=== PATIENT | male | born 1930 | race Two or more races ===

== ENCOUNTER → 2016-10-06 | Outpatient (CLI) | payer MEDICARE, MEDICAID ==
[~2016-10-06] MED LIST: ALIGN4 M1 PO; LINZESS145 MCG PO; MIRTAZAPINE15 MG ORAL; OMEPRAZOLE40 M1 ORAL; RANITIDINE HCL150 MG ORAL; [UNRECOGNIZED DRUG - REMARK] PO
--- NOTE | 2016-10-06 10:03 | GI Progress Note ---
Assessment/Plan Problems: (1) Abdominal pain ICD Codes: R10.9 - Unspecified abdominal pain SNOMED: 97655974 (2) Helicobacter pylori (H. pylori) ICD Codes: A04.8 - Other specified bacterial intestinal infections SNOMED: 6788326 (3) Weight loss ICD Codes: R63.4 - Abnormal weight loss SNOMED: 74841773 Status: stable Status Narrative Seen with Dr. Baxter. Assessment/Plan HP positive >> tx given, RTC x 3 months for RT Abdominal pain >> HIDA scan with CCK wt loss >> f/u possible EUS next visit The patient was seen and examined at bedside and all new and available data was reviewed in the patients chart. I agree with the above findings, impression and plan. (Patient seen earlier today. Signature stamp does not reflect patient encounter time.). -Jeb Baxter MD Subjective Subjective abdominal pain wt loss Objective General Appearance: no apparent distress, alert Cardiovascular: normal rate Respiratory/Chest: lungs clear, normal breath sounds Abdominal Exam: normal bowel sounds, non tender, soft Genitourinary/Rectal: normal rectal exam Extremities: normal range of motion Objective Date of Service: 09/23/16 Endoscopy Procedure Note Indication for Procedure: abd pain, wt lis Procedures Performed: EGD, colonoscopy Operative Findings/Diagnosis: 3 polyps JEB BAXTER - Sep 23, 2016 11:10 Scarlett Jean-Baptiste N.PAna Oct 06, 2016 10:03 JEB BAXTER Oct 07, 2016 12:16
== END | disposition home or self-care (01) ==
LOC: PAN 09:27
DX: R10.9 Unspecified abdominal pain (principal); A04.8 Other specified bacterial intestinal infections; R63.4 Abnormal weight loss; K63.5 Polyp of colon
CPT/HCPCS: 99211

== ENCOUNTER → 2016-10-19 | Day surgery (SDC) | payer MEDICARE, MEDICAID ==
[~2016-10-19] VITALS: Ht 160 cm; Wt 61.2 kg
[2016-10-19] VITALS (9 sets, daily range): BP systolic 106–118; BP diastolic 65–76
[~2016-10-19] MED LIST changes: +DiphenhydrAMINE 50mg/ml Inj IVP PRN; +LR 1000ml 1,000 ML IVLG SCH; +LR 1000ml ONE; +Labetalol 5mg/ml 20ml vial IV PRN; +Lidocaine 1% MPF 10mg/ml 5ml ONE; +Propofol 10mg/ml 20ml IV ONE
--- NOTE | 2016-10-19 08:54 | Anethesia Preoperative Eval ---
Anesthesia Pre-op PMH/ROS General Date of Evaluation: Oct 19, 2016 Anesthesiologist: Blas ASA Score: ASA 2 Mallampati Score Class I : Soft palate, uvula, fauces, pillars visible Class II: Soft palate, uvula, fauces visible Class III: Soft palate, base of uvula visible Class IV: Only hard plate visible Mallampati Classification: Class II Surgeon: Vee Diagnosis: ABdominal pain Surgical Procedure: EUS Anesthesia History: none Family History: no anesthesia problems Allergies: Coded Allergies: No Known Allergies (Unverified , 06/26/16) Medications: see eMAR Past Medical History Cardiovascular: Denies: CAD, HTN, OR, arrhythmia, other, valve dz Pulmonary: Denies: COPD, RICHAR, asthma, other Gastrointestinal/Genitourinary: Reports: GERD - gastritis, other - hiatal hernia, Denies: CRI, ESRD Neurologic/Psychiatric: Denies: CVA, TIA, dementia, depression/anxiety, other Endocrine: Denies: DM, hypothyroidism, other, steroids HEENT: Denies: [place] (L), [place] (R), cataract (L), cataract (R), glaucoma, other Hematology/Immune: Reports: anemia - chronic, Denies: DVT, bleeding disorder, other Musculoskeletal/Integumentary: Reports: OA, Denies: DDD, DJD, RA, edema, other PSxH Narrative: Right THR Anesthesia Pre-op Phys. Exam Physician Exam Last Vital Signs Date Time Temp Pulse Resp B/P Pulse Ox O2 Delivery O2 Flow Rate FiO2 10/19/16 07:37 97.8 65 20 110/65 97 Room Air Constitutional: NAD Cardiovascular: RRR Respiratory: CTA Airway Exam Mallampati Score: Class II MO: full Anesthesia Pre-op A/P Labs see chart Studies Pre-op Studies: EKG - sr Risk Assessment & Plan Assessment: ASA II Plan: MAC Status Change Before Surgery: No Pre-Antibiotics Drug: N/A KIM FULLER M.D. Oct 19, 2016 08:54
--- NOTE | 2016-10-19 08:55 | 48 Hour Post Anesthesia Eval ---
Post Anesthesia Evaluation Procedure: EUS Date of Evaluation: Oct 19, 2016 Blood Pressure Systolic: 131 0: 81 Pulse Rate: 74 Respiratory Rate: 16 O2 Sat by Pulse Oximetry: 98 Nausea: No Vomiting: No Pain Intensity: 0 Hydration Status: adequate Cardiopulmonary Status: at baseline Mental Status/LOC: patient returned to baseline Post-Anesthesia Complications: 0 Follow-up care needed: ready to discharge KIM FULLER M.D. Oct 19, 2016 08:55
--- NOTE | 2016-10-19 08:55 | Immediate Post-Op Evaluation ---
Immediate Post-Op Evalulation Immediate Post-Op Evalulation Procedure: EUS Date of Evaluation: Oct 19, 2016 Time of Evaluation: 09:56 IV Fluids: 400 Blood Products: 0 Estimated Blood Loss: 0 Urinary Output: 0 Blood Pressure Systolic: 106 Blood Pressure Diastolic: 70 Pulse Rate: 81 Respiratory Rate: 17 O2 Sat by Pulse Oximetry: 97 Temperature (Fahrenheit): 97.6 Pain Score (1-10): 0 Nausea: No Vomiting: No Complications 0 Patient Status: awake, reacts, patent, none Hydration Status: adequate Drug: N/A KIM FULLER M.D. Oct 19, 2016 08:55
--- NOTE | 2016-10-19 09:07 | Pre-Procedure Note/Attestation ---
Pre-Procedure Note/Attestation Complete Prior to Procedure Planned Procedure: not applicable Procedure Narrative: eus Indications for Procedure Pre-Operative Diagnosis: wt loss, abd pain Attestation I attest that I discussed the nature of the procedure; its benefits; risks and complications; and alternatives (and the risks and benefits of such alternatives ), prior to the procedure, with the patient (or the patient's legal professional healthcare representative). I attest that, if there was a reasonable possibility of needing a blood transfusion, the patient (or the patient's legal professional healthcare representative) was given the [facility] standardized written summary, pursuant to the [place] Blood Safety Act ([place] Health and Safety Code # 1645, as amended). I attest that I re-evaluated the patient just prior to the surgery and that there has been no change in the patient's H&P, except as documented below: KELSEA VELAZQUEZ Oct 19, 2016 09:07
--- NOTE | 2016-10-19 09:09 | Short Stay Surgery H&P ---
History of Present Illness History of Present Illness Chief Complaint abd pain HPI Fawn Feliciano is a 85 year old male who was admitted on for Abdominal Pain Patient History Allergies: Coded Allergies: No Known Allergies (Unverified , 06/26/16) PAST MEDICAL HISTORY: (1) Constipation (2) Gastritis (3) GERD (gastroesophageal reflux disease) (4) BPH (benign prostatic hyperplasia) (5) Weight loss (6) Abdominal pain (7) Helicobacter pylori (H. pylori) Past Surgeries: Social History: Medication History Scheduled Bifidobacterium Infantis (Align), 4 MG PO DAILY, (Reported) Linaclotide (Linzess), 145 MCG PO DAILY, (Reported) Mirtazapine* (Remeron*), 3.5 MG ORAL BEDTIME, (Reported) Omeprazole (Omeprazole), 40 MG ORAL DAILY, (Reported) Ranitidine Hcl* (Zantac*), 75 MG ORAL TID, (Reported) [Postate Pill], PO DA, (Reported) Review of Systems Cardiovascular: Reports: no symptoms Respiratory: Reports: no symptoms Skeletal: Reports: no symptoms Gastrointestinal: Reports: gastro esophageal reflux disease Genitourinary: Reports: no symptoms Neurologic: Reports: no symptoms Endocrine: Reports: no symptoms Hematologic: Reports: no symptoms Physical Exam Vital Signs Last Vital Signs Date Time Temp Pulse Resp B/P Pulse Ox O2 Delivery O2 Flow Rate FiO2 10/19/16 07:37 97.8 65 20 110/65 97 Room Air Skin: normal HENT: normal Heart: normal Lungs: normal Abdomen: normal Extremities: normal Plan Plan of Care eus Final Diagnosis: Attestation Are the patient's medical conditions optimized for surgery? Attestation Response: yes KELSEA VELAZQUEZ Oct 19, 2016 09:09
--- NOTE | 2016-10-19 10:08 | Endoscopy Procedure Note ---
Endoscopy Procedure Note Indication for Procedure: wt loss abd pain Procedures Performed: other - EUS Operative Findings/Diagnosis: panc mass Specimen: none Pt Tolerated Procedure Well: Yes Estimated Blood Loss: none Anesthesiologist: juan Anesthesia: MAC Implant(s) used?: No 50 yrs or older w/o bx or poly: Not Applicable 10yrs. F/U not recommended: Not Applicable KELSEA VELAZQUEZ Oct 19, 2016 10:08
[2016-10-19 10:44] LABS: AMYLASE 61 U/L (10-110); ANION GAP 13 (5-15); CALCIUM 8.7 mg/dL (8.6-10.2); CARBON DIOXIDE 27 mEQ/L (20-30); CHLORIDE 97 mEQ/L (98-107); CREATININE 0.8 mg/dL (0.7-1.2); HEMOLYSIS 11; LIPASE 17 U/L (< 60); POTASSIUM 3.9 mEQ/L (3.4-4.9); SODIUM 137 mEQ/L (135-145)
--- NOTE | 2016-10-19 13:24 | Diagnostic Imaging Report ---
Indications: Abdominal pain, weight loss, pancreatic mass on endoscopic ultrasound Technique: Continuous helical CT imaging of the abdomen and pelvis was performed with automatic exposure control following administration of oral and intravenous nonionic iodine contrast, on a Siemens sensation [address] scanner. Arterial and venous phase imaging performed. Axial, coronal, and sagittal images were reconstructed at 5 mm slice thickness. CTDI volume(s): 8, 65, 12, 15 mGy Total DLP: 1260 mGy-cm Findings: Comparison: None Solid, multilobulated, heterogeneously hypoattenuating mass occupies a portion of the pancreatic head and adjacent body.. It measures approximately 3.7 x 3 x 2.7 cm. It abuts and focally narrows the splenic-mesenteric venous confluence and peripheral aspect of the main portal vein. All 3 appear patent and well-opacified. No also abuts and partially encases the thecal aspect of the celiac axis, proximal aspects of the splenic and common hepatic arteries. Superior mesenteric artery does not appear contacted by the mass. Density process a portion of adjacent pancreatic head appear uninvolved. Bile ducts and gallbladder are nondilated. Pancreatic body and tail distal to the mass are diffusely atrophic with ductal dilation and several small nodular parenchymal calcifications. Several small lymph nodes reside adjacent to the mass, up to 1 cm diameter. Liver is unremarkable without focal abnormality. Small hiatal hernia is present. Focal cortical thinning upper pole left kidney. Subcentimeter circumscribed low-attenuation focus upper pole cortex right kidney. Scattered arterial mural calcifications without obvious flow-limiting stenosis or occlusion. Early distended and fecal filled. Colonic hepatic flexure resides anterior to the liver. Several diverticula are present in the opacified sigmoid colon, which is poorly distended. Urinary bladder distended with 3 cm diverticulum emanating from its right lateral margin. Fat-containing right inguinal hernia. Fixation hardware proximal aspect right femur. Remainder visualized abdominopelvic anatomy demonstrates no other obvious significant abnormality. Irregular increased interstitial markings, more discrete linear densities and patchy groundglass opacities and dependent portions of both lung bases. Multilevel disc space narrowing with marginal osteophyte formation, vacuum phenomenon and lumbar, lower thoracic spine. IMPRESSION: 3.7 cm solid mass in the head/body junction of the pancreas highly suspicious for primary pancreatic adenocarcinoma Atrophy pancreas distal to the mass No associated bile duct obstruction Abutment and narrowing of splenic-mesenteric venous confluence and peripheral aspect of main portal vein Abutment/partial encasement of distal celiac axis and branches Multifocal mild peripancreatic adenopathy No evidence of hepatic or other distant metastases Right renal cortical low-attenuation focus too small to accurately characterize, most likely cyst Left renal cortical scarring versus junctional parenchymal defect Suggestion of constipation Chilaiditi syndrome Small hiatal hernia Arteriosclerosis Urinary bladder distention with diverticulum. Outflow obstruction not excludable. Previous right femur ORIF Pulmonary bibasal parenchymal changes as described, may all be atelectatic in nature. Congestive and/or inflammatory disease not excludable Degenerative spondylosis
--- NOTE | 2016-10-19 21:17 | Procedure Note ---
DATE OF PROCEDURE: 10/19/2016 SURGEON: Jeb Baxter M.D. PROCEDURE: Endoscopic ultrasound. ANESTHESIOLOGIST: Dr. Galeano. INSTRUMENT: Olympus adult flexible EUS radial scope. INDICATION: Weight loss and abdominal pain. REASON FOR PROCEDURE: The procedure, risks, benefits, and possible consequences, including hemorrhage, aspiration, perforation and infection, and alternative treatments were explained to the patient/legal guardian by Dr. Jeb Baxter and the patient/legal guardian understood and accepted these risks. DESCRIPTION OF PROCEDURE: After informed consent was obtained and the patient was adequately sedated, the EUS scope was advanced from the mouth into the esophagus and then into the stomach and subsequently into the second portion of duodenum and pancreatic parenchyma was carefully examined through the gastroduodenal mucosa. The patient had a normal left adrenal gland. No obvious large celiac axis lymphadenopathy. The patient had dilated pancreatic duct in the body and tail of the pancreas roughly measured about 5 mm in the body of the pancreas. The patient also had evidence of atrophic pancreas especially in the tail. Then, the scope was advanced into the duodenal bulb and second portion of duodenum. The patient had a little difficult procedure given the duodenal bulb was very small as soon as we get into the duodenum we will move to the second portion of duodenum. There was evidence of about 3 cm hypoechoic lesion in the head /uncinate process of the pancreas since that this lesion involves the portal vein. There is a small peripancreatic lymph node about 6 mm. No obvious common bile duct dilatation. No obvious gallstones. The liver also look little bit atrophic. The patient tolerated the procedure without any complication. SUMMARY OF FINDINGS: 1. Dilated pancreatic duct about 5 mm in the body and tail of the pancreas. 2. Atrophic pancreatic tail and body. 3. A 3 cm hypoechoic lesion in the head/uncinate process of the pancreas with possible involvement of the portal vein and also the peripancreatic lymph node of 6 mm suspicious for malignancy. RECOMMENDATIONS: We are going to order a CT of the abdomen and pelvis with pancreatic protocol with IV and contrast to further evaluate this lesion in the head of the pancreas, to further evaluate staging if there is a malignancy and we will make further decision after the CT is done. We also going to order a CA-19-9. I want to thank, Dr. Benito for this kind referral. Jebabdelrahman Baxter M.D. DR: Kayden JOB#: [id number] CC: Jairo Benito M.D.
== END | disposition home or self-care (01) ==
LOC: GAS 07:12
DX: K86.89 Other specified diseases of pancreas (principal); R59.0 Localized enlarged lymph nodes; R63.4 Abnormal weight loss; N40.0 Benign prostatic hyperplasia without lower urinary tract symptoms; K21.9 Gastro-esophageal reflux disease without esophagitis; K44.9 Diaphragmatic hernia without obstruction or gangrene; Z87.19 Personal history of other diseases of the digestive system; D64.9 Anemia, unspecified; M19.90 Unspecified osteoarthritis, unspecified site
CPT/HCPCS: 36415; 43237; 74177; 80048; 82150; 83690; 86301; J2405; J2704; J7120; Q9967; 94003; 94150

== ENCOUNTER 2017-02-16 09:14 | Outpatient (CLI) | payer MEDICARE, MEDICAID ==
[~2017-02-16 09:14] MED LIST changes: -DiphenhydrAMINE 50mg/ml Inj IVP PRN; -LR 1000ml 1,000 ML IVLG SCH; -LR 1000ml ONE; -Labetalol 5mg/ml 20ml vial IV PRN; -Lidocaine 1% MPF 10mg/ml 5ml ONE; -Propofol 10mg/ml 20ml IV ONE
[2017-02-16 09:42] VITALS: BP 120/67
--- NOTE | 2017-02-16 10:29 | GI Progress Note ---
Assessment/Plan Problems: (1) Constipation ICD Codes: K59.00 - Constipation, unspecified SNOMED: 45871579 (2) GERD (gastroesophageal reflux disease) ICD Codes: K21.9 - Gastro-esophageal reflux disease without esophagitis SNOMED: 982147465 (3) Abdominal pain ICD Codes: R10.9 - Unspecified abdominal pain SNOMED: 22738289 (4) Helicobacter pylori (H. pylori) ICD Codes: A04.8 - Other specified bacterial intestinal infections SNOMED: 1939046 (5) Weight loss ICD Codes: R63.4 - Abnormal weight loss SNOMED: 03879413 (6) Pancreatic mass ICD Codes: K86.9 - Disease of pancreas, unspecified SNOMED: 937972709 Status: stable Status Narrative Discussed with Dr. Baxter. Assessment/Plan HP positive >> tx given in Oct (pt did not take?), RT next visit trial movantik BID Rx Anusol HC RTC x 1 month Endoscopy Procedure Note Indication for Procedure: wt loss abd pain Procedures Performed: other - EUS Operative Findings/Diagnosis: panc mass KELSEA BAXTER - Oct 19, 2016 10:08 Subjective Subjective Abdominal pain, takes pain medication constipation rectal pain decrease appetite dizziness Objective Last 24 Hour Vital Signs Date Time Temp Pulse Resp B/P Pulse Ox O2 Delivery O2 Flow Rate FiO2 02/16/17 09:42 98.4 93 18 120/67 96 Weight (Pounds): 108 General Appearance: no apparent distress, alert Cardiovascular: normal rate Respiratory/Chest: normal breath sounds, no respiratory distress Abdominal Exam: normal bowel sounds, non tender, soft Extremities: normal range of motion Scarlett Jean-Baptiste N.P. February 16, 2017 10:29
[2017-02-16] MEDS ORDERED: ZITHROMAX250 MG ORAL (11:01)
[2017-02-16] MEDS ORDERED: CREON DR 24,001 EACH PO (11:01)
[2017-02-16] MEDS ORDERED: MUCUS RELIEF400 MG PO (11:01)
[2017-02-16] MEDS ORDERED: NEXIUM40 MG ORAL (11:01)
[2017-02-16] MEDS ORDERED: LINZESS290 MCG PO (11:01)
[2017-02-16] MEDS ORDERED: NORCO 10-325 T1 EACH ORAL (11:01)
[2017-02-16] MEDS ORDERED: VITAMIN D250000 UNI1 ORAL (11:01)
== END 2017-02-16 10:00 | disposition home or self-care (01) ==
LOC: PAN 09:14
DX: K59.00 Constipation, unspecified (principal); K21.9 Gastro-esophageal reflux disease without esophagitis; R10.9 Unspecified abdominal pain; A04.8 Other specified bacterial intestinal infections; R63.4 Abnormal weight loss; K86.9 Disease of pancreas, unspecified; R42 Dizziness and giddiness
CPT/HCPCS: 99211

== ENCOUNTER 2017-04-27 09:02 | Outpatient (CLI) | payer MEDICARE, MEDICAID ==
[~2017-04-27 09:02] MED LIST changes: +CREON DR 24,001 EACH PO; +LINZESS290 MCG PO; +MUCUS RELIEF400 MG PO; +NEXIUM40 MG ORAL; +NORCO 10-325 T1 EACH ORAL; +VITAMIN D250000 UNI1 ORAL; +ZITHROMAX250 MG ORAL
[2017-04-27 09:20] VITALS: BP 131/69
--- NOTE | 2017-04-27 09:34 | GI Progress Note ---
Assessment/Plan Problems: (1) Pancreatic mass ICD Codes: K86.9 - Disease of pancreas, unspecified SNOMED: 474374954 (2) Helicobacter pylori (H. pylori) ICD Codes: A04.8 - Other specified bacterial intestinal infections SNOMED: 3825811 (3) Abdominal pain ICD Codes: R10.9 - Unspecified abdominal pain SNOMED: 34276759 (4) Weight loss ICD Codes: R63.4 - Abnormal weight loss SNOMED: 58208662 (5) Constipation ICD Codes: K59.00 - Constipation, unspecified SNOMED: 19390882 (6) GERD (gastroesophageal reflux disease) ICD Codes: K21.9 - Gastro-esophageal reflux disease without esophagitis SNOMED: 120009489 Status: stable Status Narrative Seen with Dr. Baxter. Assessment/Plan Increased Creon 3K, 3 tabs TID dc movantik >> rx amitiza 24mcg rx dexilant RTC x 1 month Endoscopy Procedure Note Indication for Procedure: wt loss abd pain Procedures Performed: other - EUS Operative Findings/Diagnosis: panc mass KELSEA BAXTER - Oct 19, 2016 10:08 Subjective Subjective abdominal pain constipation decreased appetite Objective Last 24 Hour Vital Signs Date Time Temp Pulse Resp B/P Pulse Ox O2 Delivery O2 Flow Rate FiO2 04/27/17 09:20 97.7 90 17 131/69 General Appearance: no apparent distress, alert Cardiovascular: normal rate Respiratory/Chest: normal breath sounds, no respiratory distress Abdominal Exam: normal bowel sounds, non tender, soft Extremities: normal range of motion Scarlett Jean-Baptiste N.P. Apr 27, 2017 09:34
[2017-04-27] MEDS ORDERED: MOVANTIK25 MG PO (15:29)
== END 2017-04-27 09:45 | disposition home or self-care (01) ==
LOC: PAN 09:02
DX: K86.9 Disease of pancreas, unspecified (principal); A04.8 Other specified bacterial intestinal infections; R10.9 Unspecified abdominal pain; R63.4 Abnormal weight loss; K59.00 Constipation, unspecified; K21.9 Gastro-esophageal reflux disease without esophagitis
CPT/HCPCS: 99211

== ENCOUNTER 2017-05-27 12:46 | Outpatient (CLI) | payer MEDICARE, MEDICAID ==
[~2017-05-27 12:46] MED LIST changes: +MOVANTIK25 MG PO
[2017-05-27 13:51] VITALS: BP 101/46
[2017-05-27] MEDS ORDERED: AMITIZA24 MCG ORAL (14:01)
[2017-05-27] MEDS ORDERED: DEXILANT60 MG ORAL (14:01)
--- NOTE | 2017-05-27 15:08 | General Progress Note ---
Assessment/Plan Problem List: (1) Pancreatic mass ICD Codes: K86.9 - Disease of pancreas, unspecified SNOMED: 269671698 (2) Abdominal pain ICD Codes: R10.9 - Unspecified abdominal pain SNOMED: 55506197 (3) GERD (gastroesophageal reflux disease) ICD Codes: K21.9 - Gastro-esophageal reflux disease without esophagitis SNOMED: 733840566 (4) Weight loss ICD Codes: R63.4 - Abnormal weight loss SNOMED: 61837709 (5) Constipation ICD Codes: K59.00 - Constipation, unspecified SNOMED: 30436902 (6) BPH (benign prostatic hyperplasia) ICD Codes: N40.0 - Benign prostatic hyperplasia without lower urinary tract symptoms SNOMED: 878706530, 631615175 (7) Gastritis ICD Codes: K29.70 - Gastritis, unspecified, without bleeding SNOMED: 7293872 (8) Helicobacter pylori (H. pylori) ICD Codes: A04.8 - Other specified bacterial intestinal infections SNOMED: 4523319 Assessment/Plan creon cont cont amitiza plan EGD in am Subjective ROS Limited/Unobtainable: Yes Allergies: Coded Allergies: No Known Allergies (Unverified , 06/26/16) Subjective c/o abd pain and wt loss Objective Last 24 Hour Vital Signs Date Time Temp Pulse Resp B/P (MAP) Pulse Ox O2 Delivery O2 Flow Rate FiO2 05/27/17 13:51 97.4 96 19 101/46 96 General Appearance: alert EENT: normal ENT inspection Neck: supple Cardiovascular: normal rate Respiratory/Chest: lungs clear Abdomen: soft, tender Extremities: non-tender KELSEA VELAZQUEZ May 27, 2017 15:08
== END 2017-05-27 13:30 | disposition home or self-care (01) ==
LOC: PAN 12:46
DX: K86.9 Disease of pancreas, unspecified (principal); R10.9 Unspecified abdominal pain; K21.9 Gastro-esophageal reflux disease without esophagitis; R63.4 Abnormal weight loss; K59.00 Constipation, unspecified; N40.0 Benign prostatic hyperplasia without lower urinary tract symptoms; K29.70 Gastritis, unspecified, without bleeding; A04.8 Other specified bacterial intestinal infections
CPT/HCPCS: 99211

== ENCOUNTER 2017-05-28 09:04 | Day surgery (SDC) | payer MEDICARE, MEDICAID ==
[~2017-05-28] VITALS: Ht 170.2 cm; Wt 47.6 kg
[2017-05-28] VITALS (8 sets, daily range): BP systolic 98–112; BP diastolic 50–63
[~2017-05-28 09:04] MED LIST changes: +AMITIZA24 MCG ORAL; +DEXILANT60 MG ORAL
--- NOTE | 2017-05-28 09:51 | Pre-Procedure Note/Attestation ---
Pre-Procedure Note/Attestation Complete Prior to Procedure Planned Procedure: not applicable Procedure Narrative: egd Indications for Procedure Pre-Operative Diagnosis: pancreatic cancer abd pain Attestation I attest that I discussed the nature of the procedure; its benefits; risks and complications; and alternatives (and the risks and benefits of such alternatives ), prior to the procedure, with the patient (or the patient's legal desk representative). I attest that, if there was a reasonable possibility of needing a blood transfusion, the patient (or the patient's legal desk representative) was given the [facility] standardized written summary, pursuant to the [place] Blood Safety Act ([place] Health and Safety Code # 1645, as amended). I attest that I re-evaluated the patient just prior to the surgery and that there has been no change in the patient's H&P, except as documented below: KELSEA VELAZQUEZ May 28, 2017 09:51
--- NOTE | 2017-05-28 09:52 | Short Stay Surgery H&P ---
History of Present Illness History of Present Illness Chief Complaint see recent consult note HPI Fawn Feliciano is a 86 year old male who was admitted on for Abdominal Pain Patient History Allergies: Coded Allergies: No Known Allergies (Unverified , 06/26/16) PAST MEDICAL HISTORY: Past Surgeries: Social History: Medication History Scheduled Bifidobacterium Infantis (Align), 4 MG PO DAILY, (Reported) Dexlansoprazole (Dexilant), 60 MG ORAL DAILY, (Reported) Ergocalciferol (Vitamin D2)* (Vitamin D*), 50,000 UNIT ORAL ONCE A WEEK, ( Reported) Guaifenesin (Mucus Relief), 400 MG PO Q4HR, (Reported) Lipase/Protease/Amylase (Creon Dr 24,000 Units Capsule), 3 EACH PO TID, ( Reported) Lubiprostone (Amitiza*), 24 MCG ORAL EVERY 12 HOURS, (Reported) Omeprazole (Omeprazole), 20 MG ORAL DAILY, (Reported) Ranitidine Hcl* (Zantac*), 75 MG ORAL TID, (Reported) [Postate Pill], PO DA, (Reported) Scheduled PRN Hydrocodone Bit/Acetaminophen 10-325* ([place] 10-325*), 1 TAB ORAL Q6H PRN for For Pain, (Reported) Discontinued Medications Esomeprazole Magnesium (Nexium), 40 MG ORAL DAILY, (Reported) Discontinued Reason: MD discontinued med Naloxegol Oxalate (Movantik), 25 MG PO DAILY, (Reported) Discontinued Reason: MD discontinued med Physical Exam Vital Signs Last Vital Signs Date Time Temp Pulse Resp B/P (MAP) Pulse Ox O2 Delivery O2 Flow Rate FiO2 05/28/17 09:43 98.0 69 20 112/63 96 Room Air Plan Attestation Are the patient's medical conditions optimized for surgery? KELSEA VELAZQUEZ May 28, 2017 09:52
[2017-05-28] MEDS ORDERED: LR 1000ml ONE (10:00)
[2017-05-28] MEDS ORDERED: fentaNYL 100 mcg/2 mL IV ONE (10:00)
[2017-05-28] MEDS ORDERED: Meperidine 25mg/0.5ml Inj (FOR RIGORS ONLY) ONE (10:00)
[2017-05-28] MEDS ORDERED: Propofol 10mg/ml 20ml IV ONE (10:00)
[2017-05-28] MEDS ORDERED: Dexamethasone 4mg/ml vial ONE (10:00)
[2017-05-28] MEDS ORDERED: Midazolam 2mg/2ml Inj ONE (10:00)
[2017-05-28] MEDS ORDERED: Metoclopramide 10mg/2ml Inj ONE (10:00)
--- NOTE | 2017-05-28 10:07 | Anethesia Preoperative Eval ---
Anesthesia Pre-op PMH/ROS General Date of Evaluation: May 28, 2017 Time of Evaluation: 09:48 Anesthesiologist: MAYRA ASA Score: ASA 2 Mallampati Score Class I : Soft palate, uvula, fauces, pillars visible Class II: Soft palate, uvula, fauces visible Class III: Soft palate, base of uvula visible Class IV: Only hard plate visible Mallampati Classification: Class II Surgeon: MARCUS Diagnosis: AAbd Pain Anesthesia History: none Family History: no anesthesia problems Allergies: Coded Allergies: No Known Allergies (Unverified , 06/26/16) Medications: see eMAR Anesthesia Pre-op Phys. Exam Physician Exam Last Vital Signs Date Time Temp Pulse Resp B/P (MAP) Pulse Ox O2 Delivery O2 Flow Rate FiO2 05/28/17 09:43 98.0 69 20 112/63 96 Room Air Constitutional: NAD Neurologic: CN 2-12 intact Cardiovascular: RRR Respiratory: CTA Airway Exam Mallampati Score: Class II MO: full ROM: full Teeth: intact Hayes Evans M.D. May 28, 2017 10:07
--- NOTE | 2017-05-28 10:11 | Anethesia Preoperative Eval ---
Anesthesia Pre-op PMH/ROS General Date of Evaluation: May 28, 2017 Time of Evaluation: 09:48 Anesthesiologist: galo ASA Score: ASA 2 Mallampati Score Class I : Soft palate, uvula, fauces, pillars visible Class II: Soft palate, uvula, fauces visible Class III: Soft palate, base of uvula visible Class IV: Only hard plate visible Mallampati Classification: Class II Surgeon: truman Diagnosis: abd pain Anesthesia History: none Allergies: Coded Allergies: No Known Allergies (Unverified , 06/26/16) Medications: see eMAR Anesthesia Pre-op Phys. Exam Physician Exam Last Vital Signs Date Time Temp Pulse Resp B/P (MAP) Pulse Ox O2 Delivery O2 Flow Rate FiO2 05/28/17 09:43 98.0 69 20 112/63 96 Room Air Constitutional: NAD Neurologic: CN 2-12 intact Cardiovascular: RRR Respiratory: CTA Airway Exam Mallampati Score: Class II MO: full ROM: full Teeth: intact Anesthesia Pre-op A/P Risk Assessment & Plan Plan: MAC Status Change Before Surgery: No Pre-Antibiotics Given Within 1 Hr of Incision: Hayes Gandhi M.D. May 28, 2017 10:11
--- NOTE | 2017-05-28 10:13 | Immediate Post-Op Evaluation ---
Immediate Post-Op Evalulation Immediate Post-Op Evalulation Procedure: EGD Date of Evaluation: May 28, 2017 Time of Evaluation: 10:45 IV Fluids: 300 Blood Products: 0 Estimated Blood Loss: 0 Urinary Output: 0 Blood Pressure Systolic: 132 Blood Pressure Diastolic: 78 Pulse Rate: 78 Respiratory Rate: 16 O2 Sat by Pulse Oximetry: 99 Temperature (Fahrenheit): 98 Pain Score (1-10): 0 Nausea: No Vomiting: No Patient Status: awake, reacts, patent Hydration Status: adequate Given Within 1 Hr of Incision: Hayes Gandhi M.D. May 28, 2017 10:13
--- NOTE | 2017-05-28 10:30 | Endoscopy Procedure Note ---
Endoscopy Procedure Note Indication for Procedure: abd pain Procedures Performed: EGD Operative Findings/Diagnosis: Specimen: yes Pt Tolerated Procedure Well: Yes Estimated Blood Loss: none Anesthesiologist: see chart Anesthesia: MAC Implant(s) used?: No 50 yrs or older w/o bx or poly: Not Applicable 10yrs. F/U not recommended: Not Applicable KELSEA VELAZQUEZ May 28, 2017 10:30
--- NOTE | 2017-05-29 06:15 | Procedure Note ---
DATE OF PROCEDURE: 05/28/2017 SURGEON: Jeb Baxter M.D. PROCEDURE: Upper endoscopy with biopsy. ANESTHESIOLOGIST: Per Dr. Evans. INSTRUMENT: Olympus upper endoscope. INDICATION: Abdominal pain and history of pancreatic cancer. REASON FOR PROCEDURE: The procedure, risks, benefits, and possible consequences, including hemorrhage, aspiration, perforation and infection, and alternative treatments, were explained to the patient/legal guardian by Dr. Jeb Baxter and the patient/legal guardian understood and accepted these risks. PROCEDURE: After informed consent was obtained and the patient was adequately sedated, the Olympus upper endoscope was advanced from mouth into the second portion of duodenum and retroflexion was performed in the stomach. The patient had clear based ulcer in the pre-pyloric region without any adherent blood clot or visible vessel. Biopsy from antrum was obtained to rule out H. pylori infection. SUMMARY FINDINGS: Gastric ulcer without any visible vessel or adherent clot. RECOMMENDATIONS: The patient is already on Dexilant, apparently not responding. We will change the Dexilant to Nexium twice a day. Add Carafate. Consider treating for H. pylori if it comes back positive. I want to thank Dr. Murrell for this kind referral. Jeb Baxter M.D. DR: DAVID JOB#: [id number] CC:
--- NOTE | 2017-06-01 15:49 | Cardiology Report ---
APPROVED REPORT EKG Measurement Heart [id number] Sinus rhythm with occasional premature ventricular complexes Otherwise normal ECG
== END 2017-05-28 11:30 | disposition home or self-care (01) ==
LOC: GAS 09:04
DX: K29.50 Unspecified chronic gastritis without bleeding (principal); B96.81 Helicobacter pylori [H. pylori] as the cause of diseases classified elsewhere; K25.9 Gastric ulcer, unspecified as acute or chronic, without hemorrhage or perforation; Z85.07 Personal history of malignant neoplasm of pancreas
CPT/HCPCS: 43239; 93005; J1100; J2250; J2704; J2765; J3010; J7120; 94003; 94150; J2180

== ENCOUNTER 2018-02-08 10:23 | Outpatient (CLI) | payer MEDICARE, MEDICAID ==
[2018-02-08 10:37] VITALS: BP 121/77
[2018-02-08] MEDS ORDERED: ZOFRAN ODT8 MG ORAL (10:40)
[2018-02-08] MEDS ORDERED: ZOFRAN4 M3 ORAL (12:40)
[2018-02-08] MEDS ORDERED: MIRALAX17 G2 ORAL (12:40)
--- NOTE | 2018-02-09 09:39 | GI Progress Note ---
Assessment/Plan Problems: (1) Pancreatic mass ICD Codes: K86.9 - Disease of pancreas, unspecified SNOMED: 710920126 (2) Vomiting ICD Codes: R11.10 - Vomiting, unspecified SNOMED: 106634636 (3) Abdominal pain ICD Codes: R10.9 - Unspecified abdominal pain SNOMED: 17791745 (4) GERD (gastroesophageal reflux disease) ICD Codes: K21.9 - Gastro-esophageal reflux disease without esophagitis SNOMED: 695875322 (5) Weight loss ICD Codes: R63.4 - Abnormal weight loss SNOMED: 80799272 Status: stable Status Narrative Discussed with Dr. Baxter. Assessment/Plan active vomiting abdominal distention, tympanic instructed patient to go ED Subjective Subjective abdominal pain nausea active vomiting poor appetite Objective Last 24 Hour Vital Signs Date Time Temp Pulse Resp B/P (MAP) Pulse Ox O2 Delivery O2 Flow Rate FiO2 02/08/18 10:37 110 18 121/77 93 General Appearance: WD/WN, no apparent distress, alert Cardiovascular: normal rate Respiratory/Chest: normal breath sounds, no respiratory distress Abdominal Exam: normal bowel sounds, non tender, soft Extremities: normal range of motion, non-tender Scarlett Jean-Baptiste NAnaPAna February 09, 2018 09:39
== END 2018-02-08 10:55 | disposition home or self-care (01) ==
LOC: PAN 10:23
DX: K86.9 Disease of pancreas, unspecified (principal); R11.10 Vomiting, unspecified; R10.9 Unspecified abdominal pain; K21.9 Gastro-esophageal reflux disease without esophagitis; R63.4 Abnormal weight loss
CPT/HCPCS: 99213

== ENCOUNTER 2018-02-08 12:57 | Inpatient (IN) | payer MEDICARE, MEDICAID ==
[~2018-02-08] VITALS: Ht 162.6 cm; Wt 42.2 kg
[~2018-02-08 12:57] MED LIST changes: +MIRALAX17 G2 ORAL; +ZOFRAN ODT8 MG ORAL; +ZOFRAN4 M3 ORAL
[2018-02-08] MEDS ORDERED: Sodium Chloride 500ML 500 ML IV ONE (12:59)
[2018-02-08] MEDS ORDERED: Morphine Sulfate 4mg/ml Inj IVP ONE (13:00)
--- NOTE | 2018-02-08 13:29 | Emergency Room Report ---
History of Present Illness General Chief Complaint: Abdominal Pain Source: Patient, Family Member, EMS Present Illness HPI Patient has history of pancreatic cancer Recently has been having increased vomiting abdominal pain Denies any diarrhea Denies any chest pain or shortness of breath Patient's family also reports decreased oral intake over the past 6 days Patient has not had chemotherapy therapy for many months Has been too weak Unknown regarding fevers I spoke to the patient's bull fiddle player who also reports a right-sided hernia that was difficult to reduce Allergies: Coded Allergies: No Known Allergies (Unverified , 06/26/16) Patient History Past Medical History: see triage record Pertinent Family History: none Reviewed Nursing Documentation: PMH: Agreed; PSxH: Agreed Nursing Documentation-PMH Past Medical History: No History, Except For Hx Cardiac Problems: No Hx Cancer: Yes Hx Gastrointestinal Problems: Yes - PANCREATIC CANCER Hx Neurological Problems: No Review of Systems All Other Systems: negative except mentioned in HPI Physical Exam Vital Signs Date Time Temp Pulse Resp B/P (MAP) Pulse Ox O2 Delivery O2 Flow Rate FiO2 02/08/18 12:38 98.1 106 18 112/76 96 98.1 Sp02 EP Interpretation: reviewed, normal General Appearance: mild distress - Appears weak Head: normocephalic, atraumatic Eyes: bilateral eye PERRL, bilateral eye EOMI ENT: hearing grossly normal, TMs + canals normal, uvula midline, dry mucus membranes Neck: full range of motion, supple, no meningismus, no bony tend Respiratory: lungs clear, normal breath sounds, no rhonchi, no respiratory distress, no retraction, no accessory muscle use Cardiovascular #1: normal peripheral pulses, regular rate, rhythm, no edema, no gallop, no JVD, no murmur Gastrointestinal: non-distended, hernia - Right inguinal hernia soft reducible , other - Device implanted left lower abdomen, uncomfortable on palpation diffusely otherwise soft abdomen no obvious peritoneal finding Genitourinary: no CVA tenderness Neurologic: oriented x3, responsive, child psychologist III-XII nml as tested, motor strength/ tone normal, sensory intact Psychiatric: mood/affect normal Skin: palpation normal, other - dry Lymphatic: normal inspection, no adenopathy Medical Decision Making Diagnostic Impression: Primary Impression: Pancreatic mass Additional Impressions: Abdominal pain Vomiting Peritonitis ER Course Multiple differentials considered Patient has history of pancreatic cancer With significant vomiting Differentials such as bowel obstruction, peritonitis, cholecystitis all considered Patient has IV hydration and antibiotics initiated CT findings are concerning for diffuse peritonitis General surgery along with GI has been consulted and patient admitted for further care Labs Test 02/08/18 13:38 02/08/18 14:25 02/09/18 07:25 White Blood Count 12.2 K/UL (4.8-10.8) 12.5 K/UL (4.8-10.8) Red Blood Count 5.01 M/UL (4.70-6.10) 4.54 M/UL (4.70-6.10) Hemoglobin 14.4 G/DL (14.2-18.0) 13.1 G/DL (14.2-18.0) Hematocrit 43.1 % (42.0-52.0) 39.3 % (42.0-52.0) Mean Corpuscular Volume 86 FL (80-99) 87 FL (80-99) Mean Corpuscular Hemoglobin 28.7 PG (27.0-31.0) 28.9 PG (27.0-31.0) Mean Corpuscular Hemoglobin Concent 33.4 G/DL (32.0-36.0) 33.4 G/DL (32.0-36.0) Red Cell Distribution Width 12.4 % (11.6-14.8) 12.8 % (11.6-14.8) Platelet Count 419 K/UL (150-450) 395 K/UL (150-450) Mean Platelet Volume 6.0 FL (6.5-10.1) 5.8 FL (6.5-10.1) Neutrophils (%) (Auto) 79.8 % (45.0-75.0) 72.2 % (45.0-75.0) Lymphocytes (%) (Auto) 10.6 % (20.0-45.0) 17.7 % (20.0-45.0) Monocytes (%) (Auto) 7.8 % (1.0-10.0) 6.6 % (1.0-10.0) Eosinophils (%) (Auto) 1.3 % (0.0-3.0) 2.7 % (0.0-3.0) Basophils (%) (Auto) 0.6 % (0.0-2.0) 0.7 % (0.0-2.0) Sodium Level 141 MMOL/L (136-145) Potassium Level 4.4 MMOL/L (3.5-5.1) Chloride Level 105 MMOL/L (98-107) Carbon Dioxide Level 29 MMOL/L (21-32) Anion Gap 7 mmol/L (5-15) Blood Urea Nitrogen 26 mg/dL (7-18) Creatinine 1.1 MG/DL (0.55-1.30) Estimat Glomerular Filtration Rate mL/min (>60) Glucose Level 115 MG/DL (74-106) Calcium Level 9.2 MG/DL (8.5-10.1) Total Bilirubin 0.6 MG/DL (0.2-1.0) Aspartate Amino Transf (AST/SGOT) 15 U/L (15-37) Alanine Aminotransferase (ALT/SGPT) 12 U/L (12-78) Alkaline Phosphatase 74 U/L (46-116) Total Creatine Kinase 18 U/L (26-308) Creatine Kinase MB 0.6 NG/ML (0.0-3.6) Creatine Kinase MB Relative Index 3.3 Troponin I 0.015 ng/mL (0.000-0.056) Total Protein 7.0 G/DL (6.4-8.2) Albumin 2.2 G/DL (3.4-5.0) Globulin 4.8 g/dL Albumin/Globulin Ratio 0.5 (1.0-2.7) Lipase 29 U/L (73-393) Urine Color Yellow Urine Appearance Slightly cloudy Urine pH 5 (4.5-8.0) Urine Specific [place] 1.025 (1.005-1.035) Urine Protein 2+ (NEGATIVE) Urine Glucose (UA) Negative (NEGATIVE) Urine Ketones 2+ (NEGATIVE) Urine Occult Blood 1+ (NEGATIVE) Urine Nitrite Negative (NEGATIVE) Urine Bilirubin 1+ (NEGATIVE) Urine Ictotest Negative Urine Urobilinogen 4 MG/DL (0.0-1.0) Urine Leukocyte Esterase 1+ (NEGATIVE) Urine RBC 0-2 /HPF (0 - 0) Urine WBC 2-4 /HPF (0 - 0) Urine Squamous Epithelial Cells Few /LPF (NONE/OCC) Urine Bacteria Few /HPF (NONE) Urine Granular Casts 0-2 /LPF (NONE) Urine Mucus Few /LPF (NONE/OCC) Rhythm Strip Diag. Results EP Interpretation: yes Rate: 60 Rhythm: NSR, no PVC's, no ectopy Chest X-Ray Diagnostic Results Chest X-Ray Diagnostic Results : Chest X-Ray Ordered: Yes # of Views/Limited/Complete: 1 View Indication: Chest Pain EP Interpretation: Yes Interpretation: no consolidation, no effusion, no pneumothorax Impression: No acute disease Electronically Signed by: Barbara Luna DO CT/MRI/US Diagnostic Results CT/MRI/US Diagnostic Results : Impression CT abdomen pelvisIMPRESSION: Limited study due to the lack of intravenous and oral contrast. Mild ascites. 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 Some metallic foci noted within the pancreatic head currently suggestive of interval treatment. Please correlate with the surgical oncologic history. Moderate size right inguinal hernia containing ascites. No evidence of bowel obstruction. Basilar atelectasis Interval development of compression fractures involving the T11 and T12 vertebra moderate to severe in degree. Other incidental findings as above Last Vital Signs Date Time Temp Pulse Resp B/P (MAP) Pulse Ox O2 Delivery O2 Flow Rate FiO2 02/08/18 12:38 98.1 106 18 112/76 96 98.1 Status: improved Disposition: ADMITTED INPATIENT Condition: Critical Referrals: NOT CHOSEN IPA/,REFERRING (PCP) Barbara Luna DO February 08, 2018 13:29
--- NOTE | 2018-02-08 13:49 | Diagnostic Imaging Report ---
Indication: Abdominal pain Technique: Continuous helical transaxial imaging of the abdomen and pelvis was obtained from the lung bases to the pubic symphysis. No intravenous contrast was administered. Coronal 2-D reformats were also obtained. Automatic Exposure Control was utilized. Total Dose length Product (DLP): 491.[address] Dose Index Volume (CTDIvol): 9.33 mGy Comparison: 10/19/2016 Findings: On the last CT examination from 10/19/2016, there was a mass suspected within the pancreatic head. This is concerning for carcinoma. Current study shows metallic foci in the area of the pancreatic head which may be related to treatment or surgery. Correlate with the history. The current study is obtained as grossly suboptimal for evaluation in the setting of prior carcinoma diagnosis. Study should be repeated with IV and good oral contrast. Please confirm the clinical history. The current study notable for moderate degree of ascites. There is soft tissue stranding of the omental fat which is nonspecific but could be secondary to carcinomatosis. There is a right inguinal hernia containing ascites. There is no evidence of bowel obstruction. The stomach is nondistended. There does not appear to have been a gastrectomy. The gallbladder is still present. Few diverticula noted in the colon. There is basilar atelectasis present within the visualized lungs. Aorta is moderately calcified. There is a catheter noted within the spinal canal. Dynamic right hip screw noted. Moderate to severe compression fractures involving the T11 and T12 vertebra noted. There is moderate retropulsion of the T12 fracture. Some old rib fractures noted. There is an old fracture of the left greater trochanteric region. IMPRESSION: Limited study due to the lack of intravenous and oral contrast. Mild ascites. 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 Some metallic foci noted within the pancreatic head currently suggestive of interval treatment. Please correlate with the surgical oncologic history. Moderate size right inguinal hernia containing ascites. No evidence of bowel obstruction. Basilar atelectasis Interval development of compression fractures involving the T11 and T12 vertebra moderate to severe in degree. Other incidental findings as above The CT scanner at [facility] is accredited by the [employer] and the scans are performed using dose optimization techniques as appropriate to a performed exam including Automatic Exposure control.
[2018-02-08 13:59] LABS: BASOPHILS % (AUTO) 0.6 % (0.0-2.0); EOSINOPHILS % (AUTO) 1.3 % (0.0-3.0); HEMATOCRIT 43.1 % (42.0-52.0); HEMOGLOBIN 14.4 G/DL (14.2-18.0); LYMPHOCYTES % (AUTO) 10.6 % (20.0-45.0); MEAN CORPUSCULAR VOLUME 86 FL (80-99); MONOCYTES % (AUTO) 7.8 % (1.0-10.0); NEUTROPHILS % (AUTO) 79.8 % (45.0-75.0); PLATELET COUNT 419 K/UL (150-450); RED BLOOD COUNT 5.01 M/UL (4.70-6.10); RED CELL DISTRIBUTION WIDTH 12.4 % (11.6-14.8); WHITE BLOOD COUNT 12.2 K/UL (4.8-10.8)
[2018-02-08] MEDS ORDERED: Piperacillin/Tazobactam 3.375 GM in NS 110 ML IVPB ONE (14:00)
[2018-02-08 14:07] LABS: ANION GAP 7 mmol/L (5-15); BLOOD UREA NITROGEN 26 mg/dL (7-18); CALCIUM 9.2 MG/DL (8.5-10.1); CARBON DIOXIDE 29 MMOL/L (21-32); CHLORIDE 105 MMOL/L (98-107); CREATININE 1.1 MG/DL (0.55-1.30); POTASSIUM 4.4 MMOL/L (3.5-5.1); SODIUM 141 MMOL/L (136-145)
[2018-02-08 14:20] LABS: ALANINE AMINOTRANSFERASE 12 U/L (12-78); ALBUMIN 2.2 G/DL (3.4-5.0); ALBUMIN/GLOBULIN RATIO 0.5 (1.0-2.7); ALKALINE PHOSPHATASE 74 U/L (46-116); ASPARTATE AMINO TRANSFERASE 15 U/L (15-37); BILIRUBIN,TOTAL 0.6 MG/DL (0.2-1.0); CKMB 0.6 NG/ML (0.0-3.6); CREATINE KINASE 18 U/L (26-308)
--- NOTE | 2018-02-08 14:28 | Diagnostic Imaging Report ---
Indication: Chest pain Comparison: None A single view chest radiograph was obtained. Findings: Lung volumes are low bilaterally. There is mild atelectasis at the lung bases. The bones are osteopenic. Aorta is calcified. IMPRESSION: Basilar atelectasis. Very low lung volumes.
[2018-02-08 14:38] LABS: APPEARANCE,URINE SLIGHTLY CLOUDY; BILIRUBIN, URINE 1+ (NEGATIVE); GLUCOSE, URINE (UA) NEGATIVE (NEGATIVE); KETONES,URINE 2+ (NEGATIVE); LEUKOCYTE ESTERASE ,URINE 1+ (NEGATIVE); NITRITE,URINE NEGATIVE (NEGATIVE); PH,URINE 5 (4.5-8.0); PROTEIN,URINE 2+ (NEGATIVE); UROBILINOGEN,URINE 4 MG/DL (0.0-1.0)
[2018-02-08 14:40] LABS: COLOR,URINE YELLOW
[2018-02-08 14:44] VITALS: BP 127/90
[2018-02-08] MEDS ORDERED: HYDROcodone/Acetamin 10/325 tab ORAL PRN ×3 (15:45→20:45)
[2018-02-08] MEDS ORDERED: Miralax 17gm pkt ORAL PRN (15:45)
[2018-02-08 16:00] VITALS: BP 122/61
--- NOTE | 2018-02-08 18:18 | Consultation ---
History of Present Illness General Date patient seen: February 08, 2018 Chief Complaint: Abdominal Pain Reason for Consultation: right inguinal hernia Present Illness HPI 87 year old male with known history of pancreatic cancer s/p biopsy, chemo, and radiation presented with worsening epigastric abdominal pain, decreased oral intake, nausea and emesis. Upon admission noted to have right groin bulge that is tender. states that he has had a known right inguinal hernia for some time now and that repair was recommended prior but because of declining medical condition and malnutrition decision was made to postpone surgery until patient improving. surgery called to evaluate for possible incarcerated right inguinal hernia. patient seen, chart reviewed, patient examined. Allergies: Coded Allergies: No Known Allergies (Unverified , 06/26/16) Medication History Scheduled Polyethylene Glycol 3350* (Miralax*), Unknown Dose ORAL DAILY, (Reported) Scheduled PRN Hydrocodone Bit/Acetaminophen 10-325* (Friendship 10-325*), 1 TAB ORAL Q6H PRN for For Pain, (Reported) Ondansetron Odt* (Zofran Odt*), 8 MG ORAL Q6H PRN for Nausea & Vomiting, ( Reported) Ondansetron* (Zofran*), Unknown Dose ORAL Q6H PRN for Nausea & Vomiting, ( Reported) Discontinued Medications Bifidobacterium Infantis (Align), 4 MG PO DAILY, (Reported) Discontinued Reason: Pt stopped taking med Dexlansoprazole (Dexilant), 60 MG ORAL DAILY, (Reported) Discontinued Reason: discontinued med Ergocalciferol (Vitamin D2)* (Vitamin D*), 50,000 UNIT ORAL ONCE A WEEK, ( Reported) Discontinued Reason: discontinued med Guaifenesin (Mucus Relief), 400 MG PO Q4HR, (Reported) Discontinued Reason: Pt stopped taking med Lipase/Protease/Amylase (Creon Dr 24,000 Units Capsule), 3 EACH PO TID, ( Reported) Discontinued Reason: discontinued med Lubiprostone (Amitiza*), 24 MCG ORAL EVERY 12 HOURS, (Reported) Discontinued Reason: discontinued med Omeprazole (Omeprazole), 20 MG ORAL DAILY, (Reported) Discontinued Reason: discontinued med Ranitidine Hcl* (Zantac*), 75 MG ORAL TID, (Reported) Discontinued Reason: discontinued med [Postate Pill], PO DA, (Reported) Discontinued Reason: discontinued med Patient History History Provided By: Patient, Family Member, Medical Record, PMD Healthcare decision maker Resuscitation status Full Code Advanced Directive on File No Past Medical/Surgical History Past Medical/Surgical History: (1) Right inguinal hernia (2) Colonoscopy planned (3) Constipation (4) Gastritis (5) Weight loss (6) GERD (gastroesophageal reflux disease) (7) Pancreatic mass (8) BPH (benign prostatic hyperplasia) (9) Helicobacter pylori (H. pylori) (10) Abdominal pain Review of Systems All Other Systems: negative except mentioned in HPI Physical Exam General Appearance: no apparent distress, alert Lines, tubes and drains: peripheral HEENT: normocephalic, mucous membranes moist Neck: non-tender Respiratory/Chest: lungs clear, normal breath sounds, no respiratory distress, no accessory muscle use Cardiovascular/Chest: normal peripheral pulses, normal rate Abdomen: normal bowel sounds, soft, no organomegaly, no mass, tender, hernia - reducible right inguinal hernia Extremities: normal range of motion Skin Exam: normal pigmentation Neurologic: alert, oriented x 3, responsive Last 24 Hour Vital Signs Date Time Temp Pulse Resp B/P (MAP) Pulse Ox O2 Delivery O2 Flow Rate FiO2 02/08/18 16:00 97.6 79 18 122/61 94 Room Air 97.6 02/08/18 15:00 98.4 89 17 128/90 99 Nasal Cannula 98.2 02/08/18 14:44 98.2 92 15 127/90 97 Nasal Cannula 98.2 02/08/18 12:38 98.1 106 18 112/76 96 98.1 Laboratory Tests Test 02/08/18 13:38 02/08/18 14:25 White Blood Count 12.2 K/UL (4.8-10.8) H Red Blood Count 5.01 M/UL (4.70-6.10) Hemoglobin 14.4 G/DL (14.2-18.0) Hematocrit 43.1 % (42.0-52.0) Mean Corpuscular Volume 86 FL (80-99) Mean Corpuscular Hemoglobin 28.7 PG (27.0-31.0) Mean Corpuscular Hemoglobin Concent 33.4 G/DL (32.0-36.0) Red Cell Distribution Width 12.4 % (11.6-14.8) Platelet Count 419 K/UL (150-450) Mean Platelet Volume 6.0 FL (6.5-10.1) L Neutrophils (%) (Auto) 79.8 % (45.0-75.0) H Lymphocytes (%) (Auto) 10.6 % (20.0-45.0) L Monocytes (%) (Auto) 7.8 % (1.0-10.0) Eosinophils (%) (Auto) 1.3 % (0.0-3.0) Basophils (%) (Auto) 0.6 % (0.0-2.0) Sodium Level 141 MMOL/L (136-145) Potassium Level 4.4 MMOL/L (3.5-5.1) Chloride Level 105 MMOL/L (98-107) Carbon Dioxide Level 29 MMOL/L (21-32) Anion Gap 7 mmol/L (5-15) Blood Urea Nitrogen 26 mg/dL (7-18) H Creatinine 1.1 MG/DL (0.55-1.30) Estimat Glomerular Filtration Rate mL/min (>60) Glucose Level 115 MG/DL (74-106) H Calcium Level 9.2 MG/DL (8.5-10.1) Total Bilirubin 0.6 MG/DL (0.2-1.0) Aspartate Amino Transf (AST/SGOT) 15 U/L (15-37) Alanine Aminotransferase (ALT/SGPT) 12 U/L (12-78) Alkaline Phosphatase 74 U/L (46-116) Total Creatine Kinase 18 U/L (26-308) L Creatine Kinase MB 0.6 NG/ML (0.0-3.6) Creatine Kinase MB Relative Index 3.3 Troponin I 0.015 ng/mL (0.000-0.056) Total Protein 7.0 G/DL (6.4-8.2) Albumin 2.2 G/DL (3.4-5.0) L Globulin 4.8 g/dL Albumin/Globulin Ratio 0.5 (1.0-2.7) L Lipase 29 U/L (73-393) L Urine Color Yellow Urine Appearance Slightly cloudy Urine pH 5 (4.5-8.0) Urine Specific [place] 1.025 (1.005-1.035) Urine Protein 2+ (NEGATIVE) H Urine Glucose (UA) Negative (NEGATIVE) Urine Ketones 2+ (NEGATIVE) H Urine Occult Blood 1+ (NEGATIVE) H Urine Nitrite Negative (NEGATIVE) Urine Bilirubin 1+ (NEGATIVE) H Urine Ictotest Negative Urine Urobilinogen 4 MG/DL (0.0-1.0) H Urine Leukocyte Esterase 1+ (NEGATIVE) H Urine RBC 0-2 /HPF (0 - 0) H Urine WBC 2-4 /HPF (0 - 0) Urine Squamous Epithelial Cells Few /LPF (NONE/OCC) Urine Bacteria Few /HPF (NONE) Urine Granular Casts 0-2 /LPF (NONE) H Urine Mucus Few /LPF (NONE/OCC) H Height (Feet): 5 Height (Inches): 4.00 Weight (Pounds): 93 Medications Current Medications Medications (Trade) Dose Ordered Sig/Twin Route PRN Reason Start Time Stop Time Status Last Admin Dose Admin Acetaminophen/ Hydrocodone Bitart (Friendship 10/325) 1 tab Q6HR PRN ORAL For Pain 02/08/18 15:45 02/15/18 15:44 Heparin Sodium (Porcine) (Heparin 5000 units/ml) 5,000 units EVERY 12 HOURS SUBQ 02/08/18 21:00 03/10/18 20:59 Ondansetron HCl (Zofran) 4 mg Q4HR PRN IVP Nausea & Vomiting 02/08/18 15:30 03/10/18 15:29 02/08/18 17:12 Polyethylene Glycol (Miralax) 17 gm DAILY PRN ORAL Constipation 02/08/18 15:45 03/10/18 15:44 Sodium Chloride 1,000 ml @ 100 mls/hr Q10H IV 02/08/18 15:30 03/10/18 15:29 02/08/18 16:27 Assessment/Plan Problem List: (1) Right inguinal hernia Assessment & Plan: 87M with right inguinal hernia that initially appeared incarcerated. on exam firm right inguinal hernia. after mild manipulation able to reduce but recurrent right away. no current incarceration or strangulation. CT reviewed and ascites filled right inguinal hernia noted without bowel contents. In reviewing the CT I can appreciate a fair amount of ascites fluid which is not normal. Mass in pancreatic head that was seen prior is no longer visualized after chemo/radiation but clip noted. 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 as for decreased appetite, nausea and emesis there is no obstruction, ileus or mechanical disorder. possible functional (gastroparesis?) or cancer related. possible failure to thrive. May benefit from feeding tube placement for the time being to see if mechanical or functional. -no acute surgical intervention necessary for reducible right inguinal hernia. discussed risks of incarceration and strangulation and possibility of emergency surgery in these situation. also discussed elective repair if condition improved at later time. -will discuss feeding tube with family. would benefit from feeds -will order paracentesis to send fluid for cytology. thank you for this consultation. will follow with you ICD Codes: K40.90 - Unilateral inguinal hernia, without obstruction or gangrene , not specified as recurrent SNOMED: 831702545 Status: stable Bubba Solis February 08, 2018 18:18
[2018-02-08 20:00] VITALS: BP 109/66
[2018-02-08] MEDS: Morphine Sulfate 4mg/ml Inj IVP PRN (21:26)
[2018-02-08] MEDS: Heparin 5000 units/ml inj SUBQ SCH (21:26)
[2018-02-09] VITALS (13 sets, daily range): BP systolic 121–156; BP diastolic 65–98
[2018-02-09] MEDS: Morphine Sulfate 4mg/ml Inj IVP PRN ×2 (04:38→20:40)
[2018-02-09 08:32] LABS: BASOPHILS % (AUTO) 0.7 % (0.0-2.0); EOSINOPHILS % (AUTO) 2.7 % (0.0-3.0); HEMATOCRIT 39.3 % (42.0-52.0); HEMOGLOBIN 13.1 G/DL (14.2-18.0); LYMPHOCYTES % (AUTO) 17.7 % (20.0-45.0); MEAN CORPUSCULAR VOLUME 87 FL (80-99); MONOCYTES % (AUTO) 6.6 % (1.0-10.0); NEUTROPHILS % (AUTO) 72.2 % (45.0-75.0); PLATELET COUNT 395 K/UL (150-450); RED BLOOD COUNT 4.54 M/UL (4.70-6.10); RED CELL DISTRIBUTION WIDTH 12.8 % (11.6-14.8); WHITE BLOOD COUNT 12.5 K/UL (4.8-10.8)
[2018-02-09 09:00] LABS: ALANINE AMINOTRANSFERASE 10 U/L (12-78); ALBUMIN/GLOBULIN RATIO 0.5 (1.0-2.7); ALKALINE PHOSPHATASE 67 U/L (46-116); ANION GAP 10 mmol/L (5-15); ASPARTATE AMINO TRANSFERASE 12 U/L (15-37); BILIRUBIN,TOTAL 0.5 MG/DL (0.2-1.0); BLOOD UREA NITROGEN 19 mg/dL (7-18); CALCIUM 8.4 MG/DL (8.5-10.1); CARBON DIOXIDE 23 MMOL/L (21-32); CHLORIDE 104 MMOL/L (98-107); CHOLESTEROL 102 MG/DL (< 200); CREATININE 0.9 MG/DL (0.55-1.30); HDL CHOLESTEROL 42 MG/DL (40-60); POTASSIUM 3.8 MMOL/L (3.5-5.1); SODIUM 137 MMOL/L (136-145); TRIGLYCERIDES 101 MG/DL (30-150)
[2018-02-09] MEDS: Heparin 5000 units/ml inj SUBQ SCH ×2 (09:00→20:44)
--- NOTE | 2018-02-09 09:16 | History and Physical Report ---
HISTORY OF PRESENT ILLNESS: The patient is an unfortunate very pleasant 87-year-old [place] gentleman with history of pancreatic cancer, followed by Dr. Murrell and Dr. Baxter. The patient had gone to Dr. Baxter's office today and was complaining of nausea, vomiting, unable to hold down food or fluids and dysphagia as well, and abdominal pain. bowel movements and possibly constipated. Denies any fevers or chills. Due to his presentation, he was referred for admission. PAST MEDICAL HISTORY: Includes history of pancreatic cancer, history of hyperlipidemia, history of arrhythmia, history of hypertension, history of BPH, history of anemia, history of colonic polyps, history of asthma, history of hip replacement, history of sepsis in the past, history of intrathecal pump. ALLERGIES: None known. SOCIAL HISTORY: Does not smoke. Does not drink any alcohol. FAMILY HISTORY: Noncontributory. PHYSICAL EXAMINATION: GENERAL: The patient is elderly, lying in bed, currently in no apparent distress. VITAL SIGNS: Stable. Afebrile. HEENT: Normocephalic and atraumatic. Pupils are equal and reactive to light. Extraocular muscles intact. Eyes are anicteric. NECK: Supple. LUNGS: Clear. HEART: Regular rate and rhythm. Soft. Tenderness in the epigastrium. EXTREMITIES: No clubbing, cyanosis, or edema. LABORATORY AND DIAGNOSTIC DATA: Labs noted. CT scan noted. ASSESSMENT AND PLAN: The patient is an 87-year-old gentleman who presents with nausea, vomiting, abdominal pain, some dysphagia. The patient has been admitted. Discussed with Dr. Baxter on CT scan results. pain medications, IV fluids, clears for now. Monitor his labs. The patient should be on DVT and ulcer prophylaxis. Jluis Wheatley M.D. DR: Afsaneh JOB#: [id number] CC:
[2018-02-09] MEDS ORDERED: D5 1/2NS 1,000 ML IV SCH ×2 (10:45→12:00)
--- NOTE | 2018-02-09 10:58 | GI Initial Consult Note ---
History of Present Illness General Date patient seen: February 09, 2018 Time patient seen: 10:51 Reason for Hospitalization: Abdominal Pain Referring physician: PRASHANTH Reason for Consultation: N/V Present Illness HPI Patient has history of pancreatic cancer Recently has been having increased vomiting abdominal pain Denies any diarrhea Denies any chest pain or shortness of breath Patient's family also reports decreased oral intake over the past 6 days Patient has not had chemotherapy therapy for many months Has been too weak Unknown regarding fevers GI consulted. This patient was initially seen in our clinic, whom presented with severe abdominal pain and active vomiting. Hx of pancreatic cancer. Patient was instructed at the time to go to the ED. He presents today with generalized weakness, nausea and pain. Labs reviewed show mild leukocytosis. Patient had EGD in 2016 dx with . Home Meds Reported Medications Ondansetron* (ZOFRAN*) 4 Mg Tablet, ORAL Q6H PRN for Nausea & Vomiting, TAB 02/08/18 Polyethylene Glycol 3350* (MIRALAX*) 17 Gm Powd.pack, ORAL DAILY, PACKET 02/08/18 Ondansetron Odt* (ZOFRAN ODT*) 8 Mg Tab.rapdis, 8 MG ORAL Q6H PRN for Nausea & Vomiting, #30 TAB 02/08/18 Hydrocodone Bit/Acetaminophen 10-325* (NORCO 10-325*) 1 Each Tablet, 1 TAB ORAL Q6H PRN for For Pain, #10 TAB 0 Refills PRN PAIN 02/16/17 Discontinued Reported Medications Dexlansoprazole (Dexilant) 60 Mg Cap.bp, 60 MG ORAL DAILY, CAP 05/27/17 Lubiprostone (AMITIZA*) 24 Mcg Capsule, 24 MCG ORAL EVERY 12 HOURS, CAP 05/27/17 Ergocalciferol (Vitamin D2)* (VITAMIN D*) 50,000 Unit Capsule, 31208 UNIT ORAL ONCE A WEEK, CAP 02/16/17 Guaifenesin (MUCUS RELIEF) 400 Mg Tablet, 400 MG PO Q4HR, TAB 02/16/17 Lipase/Protease/Amylase (CREON DR 24,000 UNITS CAPSULE) 1 Each Capsule., 3 EACH PO TID, CAP 02/16/17 Omeprazole (OMEPRAZOLE) 40 Mg Capsule., 20 MG ORAL DAILY, CAP 09/22/16 Ranitidine Hcl* (ZANTAC*) 150 Mg Tablet, 75 MG ORAL TID, TAB 09/22/16 Bifidobacterium Infantis (ALIGN) 4 Mg Capsule, 4 MG PO DAILY, CAP 09/22/16 [Postate Pill] No Conflict Check, PO DA 06/26/16 Med list reviewed/reconciled: Yes Allergies: Coded Allergies: No Known Allergies (Unverified , 06/26/16) Patient History Limited by: medical condition History Provided By: Family Member, Medical Record PMH Narrative Past Medical History: see triage record Pertinent Family History: none Reviewed Nursing Documentation: PMH: Agreed; PSxH: Agreed Nursing Documentation-PMH Past Medical History: No History, Except For Hx Cardiac Problems: No Hx Cancer: Yes Hx Gastrointestinal Problems: Yes - PANCREATIC CANCER Hx Neurological Problems: No Social History: Denies: smoking, alcohol use, drug use, other Review of Systems All Other Systems: negative except mentioned in HPI Physical Exam Vital Signs Date Time Temp Pulse Resp B/P (MAP) Pulse Ox O2 Delivery O2 Flow Rate FiO2 02/08/18 12:38 98.1 106 18 112/76 96 98.1 02/08/18 14:44 Nasal Cannula Sp02 EP Interpretation: reviewed, normal Labs Laboratory Tests Test 02/08/18 13:38 02/08/18 14:25 02/09/18 07:25 02/09/18 09:30 White Blood Count 12.2 K/UL (4.8-10.8) H 12.5 K/UL (4.8-10.8) H Red Blood Count 5.01 M/UL (4.70-6.10) 4.54 M/UL (4.70-6.10) L Hemoglobin 14.4 G/DL (14.2-18.0) 13.1 G/DL (14.2-18.0) L Hematocrit 43.1 % (42.0-52.0) 39.3 % (42.0-52.0) L Mean Corpuscular Volume 86 FL (80-99) 87 FL (80-99) Mean Corpuscular Hemoglobin 28.7 PG (27.0-31.0) 28.9 PG (27.0-31.0) Mean Corpuscular Hemoglobin Concent 33.4 G/DL (32.0-36.0) 33.4 G/DL (32.0-36.0) Red Cell Distribution Width 12.4 % (11.6-14.8) 12.8 % (11.6-14.8) Platelet Count 419 K/UL (150-450) 395 K/UL (150-450) Mean Platelet Volume 6.0 FL (6.5-10.1) L 5.8 FL (6.5-10.1) L Neutrophils (%) (Auto) 79.8 % (45.0-75.0) H 72.2 % (45.0-75.0) Lymphocytes (%) (Auto) 10.6 % (20.0-45.0) L 17.7 % (20.0-45.0) L Monocytes (%) (Auto) 7.8 % (1.0-10.0) 6.6 % (1.0-10.0) Eosinophils (%) (Auto) 1.3 % (0.0-3.0) 2.7 % (0.0-3.0) Basophils (%) (Auto) 0.6 % (0.0-2.0) 0.7 % (0.0-2.0) Sodium Level 141 MMOL/L (136-145) 137 MMOL/L (136-145) Potassium Level 4.4 MMOL/L (3.5-5.1) 3.8 MMOL/L (3.5-5.1) Chloride Level 105 MMOL/L (98-107) 104 MMOL/L (98-107) Carbon Dioxide Level 29 MMOL/L (21-32) 23 MMOL/L (21-32) Anion Gap 7 mmol/L (5-15) 10 mmol/L (5-15) Blood Urea Nitrogen 26 mg/dL (7-18) H 19 mg/dL (7-18) H Creatinine 1.1 MG/DL (0.55-1.30) 0.9 MG/DL (0.55-1.30) Estimat Glomerular Filtration Rate mL/min (>60) mL/min (>60) Glucose Level 115 MG/DL (74-106) H 73 MG/DL (74-106) L Calcium Level 9.2 MG/DL (8.5-10.1) 8.4 MG/DL (8.5-10.1) L Total Bilirubin 0.6 MG/DL (0.2-1.0) 0.5 MG/DL (0.2-1.0) Aspartate Amino Transf (AST/SGOT) 15 U/L (15-37) 12 U/L (15-37) L Alanine Aminotransferase (ALT/SGPT) 12 U/L (12-78) 10 U/L (12-78) L Alkaline Phosphatase 74 U/L (46-116) 67 U/L (46-116) Total Creatine Kinase 18 U/L (26-308) L Creatine Kinase MB 0.6 NG/ML (0.0-3.6) Creatine Kinase MB Relative Index 3.3 Troponin I 0.015 ng/mL (0.000-0.056) Total Protein 7.0 G/DL (6.4-8.2) 6.4 G/DL (6.4-8.2) Albumin 2.2 G/DL (3.4-5.0) L 2.0 G/DL (3.4-5.0) L Globulin 4.8 g/dL 4.4 g/dL Albumin/Globulin Ratio 0.5 (1.0-2.7) L 0.5 (1.0-2.7) L Lipase 29 U/L (73-393) L Urine Color Yellow Urine Appearance Slightly cloudy Urine pH 5 (4.5-8.0) Urine Specific [place] 1.025 (1.005-1.035) Urine Protein 2+ (NEGATIVE) H Urine Glucose (UA) Negative (NEGATIVE) Urine Ketones 2+ (NEGATIVE) H Urine Occult Blood 1+ (NEGATIVE) H Urine Nitrite Negative (NEGATIVE) Urine Bilirubin 1+ (NEGATIVE) H Urine Ictotest Negative Urine Urobilinogen 4 MG/DL (0.0-1.0) H Urine Leukocyte Esterase 1+ (NEGATIVE) H Urine RBC 0-2 /HPF (0 - 0) H Urine WBC 2-4 /HPF (0 - 0) Urine Squamous Epithelial Cells Few /LPF (NONE/OCC) Urine Bacteria Few /HPF (NONE) Urine Granular Casts 0-2 /LPF (NONE) H Urine Mucus Few /LPF (NONE/OCC) H Triglycerides Level 101 MG/DL (30-150) Cholesterol Level 102 MG/DL (< 200) LDL Cholesterol 54 mg/dL (<100) HDL Cholesterol 42 MG/DL (40-60) Cholesterol/HDL Ratio 2.4 (3.3-4.4) L Thyroid Stimulating Hormone (TSH) 1.400 uiU/mL (0.358-3.740) Prothrombin Time 10.8 SEC (9.30-11.50) Prothromb Time International Ratio 1.0 (0.9-1.1) Activated Partial Thromboplast Time 32 SEC (23-33) General Appearance: well appearing, no apparent distress, alert, thin Head: normocephalic EENT: PERRL/EOMI, normal ENT inspection Neck: supple Respiratory: normal breath sounds, no respiratory distress Cardiovascular: normal rate Gastrointestinal: normal inspection, non tender, soft, normal bowel sounds, non -distended Rectal: deferred Genitourinary: deferred Musculoskeletal: normal inspection, back normal Neurologic: alert, responsive Skin: normal inspection, normal color, no rash, warm/dry, palpation normal, well hydrated Lymphatic: normal inspection, no adenopathy Current Medications Current Medications Medications (Trade) Dose Ordered Sig/Twin Route PRN Reason Start Time Stop Time Status Last Admin Dose Admin Acetaminophen/ Hydrocodone Bitart ([place] 10/325) 1 tab Q6HR PRN ORAL PAIN 4-10 02/08/18 20:45 02/15/18 15:44 Dextrose/Sodium Chloride 1,000 ml @ 75 mls/hr [id number] IV 02/09/18 10:45 03/11/18 10:44 UNV Heparin Sodium (Porcine) (Heparin 5000 units/ml) 5,000 units EVERY 12 HOURS SUBQ 02/08/18 21:00 03/10/18 20:59 02/08/18 21:26 Morphine Sulfate (Morphine Sulfate) 1 mg Q4H PRN IVP Breakthrough Pain 02/08/18 20:45 02/15/18 20:44 02/09/18 04:38 Ondansetron HCl (Zofran) 4 mg Q4HR PRN IVP Nausea & Vomiting 02/08/18 15:30 03/10/18 15:29 02/08/18 17:12 Polyethylene Glycol (Miralax) 17 gm DAILY PRN ORAL Constipation 02/08/18 15:45 03/10/18 15:44 Thiamine HCl 100 mg/Folic Acid 1 mg/Magnesium Sulfate 2000 mg/ Multivitamins 10 ml/Sodium Chloride 1,015.2 ml @ 125 mls/ hr Q24H IV 02/09/18 10:45 03/11/18 10:44 UNV GI: Plan Problems: (1) Vomiting (2) Pancreatic mass (3) Abdominal pain (4) GERD (gastroesophageal reflux disease) (5) Weight loss Plan maintain NPO + IVFs for possible endoscopy today. will follow with complete note. ppi zofran prn pain mgmt fu labs Discussed with Dr. Baxter. Thank you for this patient referral, we will follow. The patient was seen and examined at bedside and all new and available data was reviewed in the patients chart. I agree with the above findings, impression and plan. (Patient seen earlier today. Signature stamp does not reflect patient encounter time.). - MD Jerilyn Gamboa Anh Maxi Hill February 09, 2018 10:58
--- NOTE | 2018-02-09 12:53 | General Progress Note ---
Assessment/Plan Assessment/Plan abdominal pain dyphagia pancreatic ca ? carcinomatosis dw Dr Fernandes ?EGD fluids anitiemetics pain control dvt and ulcer prophylaxis ambulate PT Subjective Allergies: Coded Allergies: No Known Allergies (Unverified , 06/26/16) Subjective co dysphagia vomits even with liquids some abdominal pain pos bm Objective Last 24 Hour Vital Signs Date Time Temp Pulse Resp B/P (MAP) Pulse Ox O2 Delivery O2 Flow Rate FiO2 02/09/18 12:00 98.4 98 21 140/87 96 Room Air 98.4 02/09/18 08:00 97.2 86 16 150/87 94 Room Air 97.2 02/09/18 04:01 Room Air 02/09/18 04:00 97.0 85 20 131/80 97 97.0 02/09/18 00:00 98.2 78 20 126/74 97 98.2 02/08/18 20:00 98.2 80 20 109/66 96 98.2 02/08/18 16:00 97.6 79 18 122/61 94 Room Air 97.6 02/08/18 15:00 98.4 89 17 128/90 99 Nasal Cannula 98.2 02/08/18 14:44 98.2 92 15 127/90 97 Nasal Cannula 98.2 Intake and Output 02/08/18 02/09/18 19:00 07:00 Intake Total 860 ml 1100 ml Output Total 320 ml Balance 540 ml 1100 ml Intake Oral 0 ml IV Total 860 ml 1100 ml Output Urine Total 300 ml Emesis 20 ml # Voids 1 2 Laboratory Tests 02/08/18 13:38: White Blood Count 12.2H, Red Blood Count 5.01, Hemoglobin 14.4, Hematocrit 43.1 , Mean Corpuscular Volume 86, Mean Corpuscular Hemoglobin 28.7, Mean Corpuscular Hemoglobin Concent 33.4, Red Cell Distribution Width 12.4, Platelet Count 419, Mean Platelet Volume 6.0L, Neutrophils (%) (Auto) 79.8H, Lymphocytes (%) (Auto) 10.6L, Monocytes (%) (Auto) 7.8, Eosinophils (%) (Auto) 1.3, Basophils (%) (Auto) 0.6, Sodium Level 141, Potassium Level 4.4, Chloride Level 105, Carbon Dioxide Level 29, Anion Gap 7, Blood Urea Nitrogen 26H, Creatinine 1.1, Estimat Glomerular Filtration Rate , Glucose Level 115H, Calcium Level 9.2 , Total Bilirubin 0.6, Aspartate Amino Transf (AST/SGOT) 15, Alanine Aminotransferase (ALT/SGPT) 12, Alkaline Phosphatase 74, Total Creatine Kinase 18L, Creatine Kinase MB 0.6, Creatine Kinase MB Relative Index 3.3, Troponin I 0.015, Total Protein 7.0, Albumin 2.2L, Globulin 4.8, Albumin/Globulin Ratio 0.5L, Lipase 29L 02/08/18 14:25: Urine Color Yellow, Urine Appearance Slightly cloudy, Urine pH 5, Urine Specific [place] 1.025, Urine Protein 2+H, Urine Glucose (UA) Negative, Urine Ketones 2+H, Urine Occult Blood 1+H, Urine Nitrite Negative, Urine Bilirubin 1+H , Urine Ictotest Negative, Urine Urobilinogen 4H, Urine Leukocyte Esterase 1+H, Urine RBC 0-2H, Urine WBC 2-4, Urine Squamous Epithelial Cells Few, Urine Bacteria Few, Urine Granular Casts 0-2H, Urine Mucus FewH 02/09/18 07:25: White Blood Count 12.5H, Red Blood Count 4.54L, Hemoglobin 13.1L, Hematocrit 39.3L, Mean Corpuscular Volume 87, Mean Corpuscular Hemoglobin 28.9, Mean Corpuscular Hemoglobin Concent 33.4, Red Cell Distribution Width 12.8, Platelet Count 395, Mean Platelet Volume 5.8L, Neutrophils (%) (Auto) 72.2, Lymphocytes ( %) (Auto) 17.7L, Monocytes (%) (Auto) 6.6, Eosinophils (%) (Auto) 2.7, Basophils (%) (Auto) 0.7, Sodium Level 137, Potassium Level 3.8, Chloride Level 104, Carbon Dioxide Level 23, Anion Gap 10, Blood Urea Nitrogen 19H, Creatinine 0.9, Estimat Glomerular Filtration Rate , Glucose Level 73L, Calcium Level 8.4L , Total Bilirubin 0.5, Aspartate Amino Transf (AST/SGOT) 12L, Alanine Aminotransferase (ALT/SGPT) 10L, Alkaline Phosphatase 67, Total Protein 6.4, Albumin 2.0L, Globulin 4.4, Albumin/Globulin Ratio 0.5L, Triglycerides Level 101 , Cholesterol Level 102, LDL Cholesterol 54, HDL Cholesterol 42, Cholesterol/ HDL Ratio 2.4L, Thyroid Stimulating Hormone (TSH) 1.400 02/09/18 09:30: Prothrombin Time 10.8, Prothromb Time International Ratio 1.0, Activated Partial Thromboplast Time 32 Height (Feet): 5 Height (Inches): 4.00 Weight (Pounds): 93 General Appearance: WD/WN, no apparent distress Neck: supple Cardiovascular: normal rate Respiratory/Chest: lungs clear Abdomen: normal bowel sounds Objective no edema JULEE ALFORD February 09, 2018 12:53
[2018-02-09] MEDS ORDERED: Lidocaine 1% MPF 10mg/ml 5ml ONE (13:00)
[2018-02-09] MEDS ORDERED: Propofol 200mg/20ml IV ONE (13:00)
--- NOTE | 2018-02-09 13:06 | Pre-Procedure Note/Attestation ---
Pre-Procedure Note/Attestation Complete Prior to Procedure Planned Procedure: not applicable Procedure Narrative: egd Indications for Procedure Pre-Operative Diagnosis: abd pain Attestation I attest that I discussed the nature of the procedure; its benefits; risks and complications; and alternatives (and the risks and benefits of such alternatives ), prior to the procedure, with the patient (or the patient's legal brand representative). I attest that, if there was a reasonable possibility of needing a blood transfusion, the patient (or the patient's legal brand representative) was given the [facility] standardized written summary, pursuant to the [place] Blood Safety Act ([place] Health and Safety Code # 1645, as amended). I attest that I re-evaluated the patient just prior to the surgery and that there has been no change in the patient's H&P, except as documented below: KELSEA VELAZQUEZ February 09, 2018 13:06
[2018-02-09] MEDS ORDERED: NS 500ML IVPB ONE (13:30)
--- NOTE | 2018-02-09 13:38 | Anethesia Preoperative Eval ---
Anesthesia Pre-op PMH/ROS General Date of Evaluation: February 09, 2018 Time of Evaluation: 13:24 Anesthesiologist: miguel ASA Score: ASA 4 Mallampati Score Class I : Soft palate, uvula, fauces, pillars visible Class II: Soft palate, uvula, fauces visible Class III: Soft palate, base of uvula visible Class IV: Only hard plate visible Mallampati Classification: Class II Surgeon: kai Diagnosis: persistent vomiting Surgical Procedure: egd Anesthesia History: none Social History: smoking - nonsmoker Family History: no anesthesia problems Allergies: Coded Allergies: No Known Allergies (Unverified , 06/26/16) Medications: see eMAR Past Medical History Gastrointestinal/Genitourinary: Reports: GERD, other - constipation, gastritis , h. pylori,right inguinal hernia, bph, pancreatic mass, peritonitis Anesthesia Pre-op Phys. Exam Physician Exam Last Vital Signs Date Time Temp Pulse Resp B/P (MAP) Pulse Ox O2 Delivery O2 Flow Rate FiO2 02/09/18 12:00 98.4 98 21 140/87 96 Room Air 98.4 Constitutional: NAD Neurologic: CN 2-12 intact Cardiovascular: RRR Respiratory: CTA Gastrointestinal: S/NT/ND Airway Exam Mallampati Score: Class II MO: limited Neck: decreased rom to lateral rotation TMD: 2fb ROM: limited Teeth: missing Anesthesia Pre-op A/P Labs Hematology Test 02/08/18 13:38 02/09/18 07:25 White Blood Count 12.2 K/UL (4.8-10.8) H 12.5 K/UL (4.8-10.8) H Red Blood Count 5.01 M/UL (4.70-6.10) 4.54 M/UL (4.70-6.10) L Hemoglobin 14.4 G/DL (14.2-18.0) 13.1 G/DL (14.2-18.0) L Hematocrit 43.1 % (42.0-52.0) 39.3 % (42.0-52.0) L Mean Corpuscular Volume 86 FL (80-99) 87 FL (80-99) Mean Corpuscular Hemoglobin 28.7 PG (27.0-31.0) 28.9 PG (27.0-31.0) Mean Corpuscular Hemoglobin Concent 33.4 G/DL (32.0-36.0) 33.4 G/DL (32.0-36.0) Red Cell Distribution Width 12.4 % (11.6-14.8) 12.8 % (11.6-14.8) Platelet Count 419 K/UL (150-450) 395 K/UL (150-450) Mean Platelet Volume 6.0 FL (6.5-10.1) L 5.8 FL (6.5-10.1) L Neutrophils (%) (Auto) 79.8 % (45.0-75.0) H 72.2 % (45.0-75.0) Lymphocytes (%) (Auto) 10.6 % (20.0-45.0) L 17.7 % (20.0-45.0) L Monocytes (%) (Auto) 7.8 % (1.0-10.0) 6.6 % (1.0-10.0) Eosinophils (%) (Auto) 1.3 % (0.0-3.0) 2.7 % (0.0-3.0) Basophils (%) (Auto) 0.6 % (0.0-2.0) 0.7 % (0.0-2.0) Coagulation Test 02/09/18 09:30 Prothrombin Time 10.8 SEC (9.30-11.50) Prothromb Time International Ratio 1.0 (0.9-1.1) Activated Partial Thromboplast Time 32 SEC (23-33) Chemistry Test 02/08/18 13:38 02/09/18 07:25 Sodium Level 141 MMOL/L (136-145) 137 MMOL/L (136-145) Potassium Level 4.4 MMOL/L (3.5-5.1) 3.8 MMOL/L (3.5-5.1) Chloride Level 105 MMOL/L (98-107) 104 MMOL/L (98-107) Carbon Dioxide Level 29 MMOL/L (21-32) 23 MMOL/L (21-32) Anion Gap 7 mmol/L (5-15) 10 mmol/L (5-15) Blood Urea Nitrogen 26 mg/dL (7-18) H 19 mg/dL (7-18) H Creatinine 1.1 MG/DL (0.55-1.30) 0.9 MG/DL (0.55-1.30) Estimat Glomerular Filtration Rate mL/min (>60) mL/min (>60) Glucose Level 115 MG/DL (74-106) H 73 MG/DL (74-106) L Calcium Level 9.2 MG/DL (8.5-10.1) 8.4 MG/DL (8.5-10.1) L Total Bilirubin 0.6 MG/DL (0.2-1.0) 0.5 MG/DL (0.2-1.0) Aspartate Amino Transf (AST/SGOT) 15 U/L (15-37) 12 U/L (15-37) L Alanine Aminotransferase (ALT/SGPT) 12 U/L (12-78) 10 U/L (12-78) L Alkaline Phosphatase 74 U/L (46-116) 67 U/L (46-116) Total Creatine Kinase 18 U/L (26-308) L Creatine Kinase MB 0.6 NG/ML (0.0-3.6) Creatine Kinase MB Relative Index 3.3 Troponin I 0.015 ng/mL (0.000-0.056) Total Protein 7.0 G/DL (6.4-8.2) 6.4 G/DL (6.4-8.2) Albumin 2.2 G/DL (3.4-5.0) L 2.0 G/DL (3.4-5.0) L Globulin 4.8 g/dL 4.4 g/dL Albumin/Globulin Ratio 0.5 (1.0-2.7) L 0.5 (1.0-2.7) L Lipase 29 U/L (73-393) L Triglycerides Level 101 MG/DL (30-150) Cholesterol Level 102 MG/DL (< 200) LDL Cholesterol 54 mg/dL (<100) HDL Cholesterol 42 MG/DL (40-60) Cholesterol/HDL Ratio 2.4 (3.3-4.4) L Thyroid Stimulating Hormone (TSH) 1.400 uiU/mL (0.358-3.740) Risk Assessment & Plan Assessment: [email or web address] Plan: mac Status Change Before Surgery: No Pre-Antibiotics Drug: ROSALIO Ahumada February 09, 2018 13:38
--- NOTE | 2018-02-09 13:47 | Endoscopy Procedure Note ---
Endoscopy Procedure Note General Indication for Procedure: abd pain Procedures Performed: EGD Operative Findings/Diagnosis: ,DU Specimen: none Pt Tolerated Procedure Well: Yes Estimated Blood Loss: none Anesthesia Anesthesiologist: miguel Anesthesia: MAC Inserted Devices Implant(s) used?: No GI Core Measures 50 yrs or older w/o bx or poly: Not Applicable 10yrs. F/U not recommended: Not Applicable KELSEA VELAZQUEZ February 09, 2018 13:47
[2018-02-09] MEDS ORDERED: Folic Acid 1 MG, Magnesium Sulfate 2,000 MG, Multivitamin - 12 Injection 10 ML in NS w/... IV SCH (14:00)
[2018-02-09] MEDS ORDERED: Thiamine HCl 100 MG in D5W 55 ML IV SCH (14:00)
--- NOTE | 2018-02-09 14:13 | Immediate Post-Op Evaluation ---
Immediate Post-Op Evalulation Immediate Post-Op Evalulation Procedure: egd Date of Evaluation: February 09, 2018 Time of Evaluation: 14:10 IV Fluids: 100ml 0.9ns Blood Products: none Estimated Blood Loss: negligible Blood Pressure Systolic: 134 Blood Pressure Diastolic: 85 Pulse Rate: 88 Respiratory Rate: 18 O2 Sat by Pulse Oximetry: 97 Temperature (Fahrenheit): 97.4 Pain Score (1-10): 0 Nausea: No Vomiting: No Complications none Patient Status: awake, reacts, patent Hydration Status: adequate Drug: ROSALIO Ahumada February 09, 2018 14:13
[2018-02-09] MEDS ORDERED: fentaNYL 100 mcg/2 mL IV PRN (14:15)
[2018-02-09] MEDS ORDERED: DiphenhydrAMINE 50mg/ml Inj IVP PRN (14:15)
[2018-02-09] MEDS ORDERED: Atropine Inj 1mg/10ml Syr IV PRN (14:15)
[2018-02-09] MEDS ORDERED: Midazolam 2mg/2ml Inj IVP PRN (14:15)
--- NOTE | 2018-02-09 15:12 | General Surgery Progress Note ---
General Surgery-Progress Note Subjective Additional Comments no acute events. EGD today with findings of DU/ Objective Last 24 Hour Vital Signs Date Time Temp Pulse Resp B/P (MAP) Pulse Ox O2 Delivery O2 Flow Rate FiO2 02/09/18 14:13 207.3 88 18 97 02/09/18 12:00 98.4 98 21 140/87 96 Room Air 98.4 02/09/18 08:00 97.2 86 16 150/87 94 Room Air 97.2 02/09/18 04:01 Room Air 02/09/18 04:00 97.0 85 20 131/80 97 97.0 02/09/18 00:00 98.2 78 20 126/74 97 98.2 02/08/18 20:00 98.2 80 20 109/66 96 98.2 02/08/18 16:00 97.6 79 18 122/61 94 Room Air 97.6 I&O Intake and Output 02/08/18 02/09/18 19:00 07:00 Intake Total 860 ml 1100 ml Output Total 320 ml Balance 540 ml 1100 ml Intake Oral 0 ml IV Total 860 ml 1100 ml Output Urine Total 300 ml Emesis 20 ml # Voids 1 2 Drains: none Cardiovascular: RSR Respiratory: clear Abdomen: soft, flat, tenderness, present bowel sounds Extremities: no cyanosis Laboratory Tests Test 02/09/18 07:25 02/09/18 09:30 White Blood Count 12.5 K/UL (4.8-10.8) H Red Blood Count 4.54 M/UL (4.70-6.10) L Hemoglobin 13.1 G/DL (14.2-18.0) L Hematocrit 39.3 % (42.0-52.0) L Mean Corpuscular Volume 87 FL (80-99) Mean Corpuscular Hemoglobin 28.9 PG (27.0-31.0) Mean Corpuscular Hemoglobin Concent 33.4 G/DL (32.0-36.0) Red Cell Distribution Width 12.8 % (11.6-14.8) Platelet Count 395 K/UL (150-450) Mean Platelet Volume 5.8 FL (6.5-10.1) L Neutrophils (%) (Auto) 72.2 % (45.0-75.0) Lymphocytes (%) (Auto) 17.7 % (20.0-45.0) L Monocytes (%) (Auto) 6.6 % (1.0-10.0) Eosinophils (%) (Auto) 2.7 % (0.0-3.0) Basophils (%) (Auto) 0.7 % (0.0-2.0) Sodium Level 137 MMOL/L (136-145) Potassium Level 3.8 MMOL/L (3.5-5.1) Chloride Level 104 MMOL/L (98-107) Carbon Dioxide Level 23 MMOL/L (21-32) Anion Gap 10 mmol/L (5-15) Blood Urea Nitrogen 19 mg/dL (7-18) H Creatinine 0.9 MG/DL (0.55-1.30) Estimat Glomerular Filtration Rate mL/min (>60) Glucose Level 73 MG/DL (74-106) L Calcium Level 8.4 MG/DL (8.5-10.1) L Total Bilirubin 0.5 MG/DL (0.2-1.0) Aspartate Amino Transf (AST/SGOT) 12 U/L (15-37) L Alanine Aminotransferase (ALT/SGPT) 10 U/L (12-78) L Alkaline Phosphatase 67 U/L (46-116) Total Protein 6.4 G/DL (6.4-8.2) Albumin 2.0 G/DL (3.4-5.0) L Globulin 4.4 g/dL Albumin/Globulin Ratio 0.5 (1.0-2.7) L Triglycerides Level 101 MG/DL (30-150) Cholesterol Level 102 MG/DL (< 200) LDL Cholesterol 54 mg/dL (<100) HDL Cholesterol 42 MG/DL (40-60) Cholesterol/HDL Ratio 2.4 (3.3-4.4) L Thyroid Stimulating Hormone (TSH) 1.400 uiU/mL (0.358-3.740) Prothrombin Time 10.8 SEC (9.30-11.50) Prothromb Time International Ratio 1.0 (0.9-1.1) Activated Partial Thromboplast Time 32 SEC (23-33) Plan Problems: (1) Right inguinal hernia Assessment & Plan: 87M with right inguinal hernia that initially appeared incarcerated. on exam firm right inguinal hernia. after mild manipulation able to reduce but recurrent right away. no current incarceration or strangulation. CT reviewed and ascites filled right inguinal hernia noted without bowel contents. In reviewing the CT I can appreciate a fair amount of ascites fluid which is not normal. Mass in pancreatic head that was seen prior is no longer visualized after chemo/radiation but clip noted. 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 as for decreased appetite, nausea and emesis there is no obstruction, ileus or mechanical disorder. possible functional (gastroparesis?) or cancer related. possible failure to thrive. May benefit from feeding tube placement for the time being to see if mechanical or functional. -no acute surgical intervention necessary for reducible right inguinal hernia. discussed risks of incarceration and strangulation and possibility of emergency surgery in these situation. also discussed elective repair if condition improved at later time. -discussed feeding tube with family. would benefit from feeds. they are deciding thank you for this consultation. will follow with you Bubba Solis February 09, 2018 15:12
[2018-02-09] MEDS ORDERED: Lidocaine 1% Plain 30 ml INJ SCH (16:00)
--- NOTE | 2018-02-09 16:27 | Cardiology Report ---
APPROVED REPORT EKG Measurement Heart [id number] Normal sinus rhythm Lateral infarct, age undetermined Inferior infarct, age undetermined Abnormal ECG
[2018-02-09] MEDS ORDERED: Pantoprazole 80 MG in NS 250 ML IV SCH (17:00)
--- NOTE | 2018-02-09 18:12 | Pre-Procedure Note/Attestation ---
Pre-Procedure Note/Attestation Complete Prior to Procedure Planned Procedure: not applicable Procedure Narrative: diagnostic paracentesis Indications for Procedure Pre-Operative Diagnosis: ascites, h/o pancreatic cancer Attestation I attest that I discussed the nature of the procedure; its benefits; risks and complications; and alternatives (and the risks and benefits of such alternatives ), prior to the procedure, with the patient (or the patient's legal farm loan representative, in this case daughter ). I attest that I re-evaluated the patient just prior to the surgery and that there has been no change in the patient's H&P, except as documented below: Michel Romo M.D. February 09, 2018 18:12
--- NOTE | 2018-02-09 18:15 | Operative Note - PDOC ---
Operative Note Operative Note Date of Operation/Procedure: February 09, 2018 Pre-op Diagnosis: ascites, h/o pancreatic cancer Post-op Diagnosis: same as pre-op Anesthesiologist: miguel Anesthesia: local, MAC Specimen: yes Complications: none Condition: stable Estimated Blood Loss: none Implant(s) used?: No Indications for Procedure ascites Description of Procedure removed 120 ml of ascites for cytology. no immediate complications Michel Romo M.D. February 09, 2018 18:15
[2018-02-09] MEDS: Sucralfate 1gm tab ORAL SCH ×2 (18:25→20:43)
--- NOTE | 2018-02-09 18:46 | Diagnostic Imaging Report ---
Indications: Ascites history of pancreatic cancer Technique: Ultrasound used to localize optimal puncture site. Sterile prepping and draping right upper quadrant, including the use of sterile ultrasound probe cover and sterile ultrasound gel. Local anesthesia with 1% lidocaine. Under real-time ultrasound guidance, puncture peritoneal space using 21-gauge needle. Aspiration performed via the needle. Total of 120 cc of ascites removed for submission for cytology. Needle removed and hemostasis easily achieved with manual compression. Sterile dressing applied. Patient tolerated procedure well, without immediate complication. Findings: Mild perihepatic ascites. 21-gauge needle noted within the peritoneal space on ultrasound. IMPRESSION: Successful ultrasound-guided diagnostic paracentesis. Specimen sent for cytology.
[2018-02-09] MEDS ORDERED: NS 275ml ONE (19:31)
[2018-02-09] MEDS ORDERED: 1/2 NS 1000ml IV ONE (19:31)
[2018-02-10] VITALS: BP 126/86
[2018-02-10] MEDS ORDERED: Metoclopramide 10mg/2ml Inj IVP PRN (00:30)
[2018-02-10] MEDS ORDERED: DiphenhydrAMINE 50mg/ml Inj IVP ONE (00:30)
[2018-02-10] MEDS ORDERED: D5 1/2NS 1000ml IV ONE (01:49)
[2018-02-10] MEDS ORDERED: Tubing IV Secondary IV ONE (01:49)
[2018-02-10] MEDS ORDERED: NS 275ml ONE (01:49)
--- NOTE | 2018-02-10 17:15 | Procedure Note ---
DATE OF PROCEDURE: 02/09/2018 SURGEON: Jeb Baxter M.D. REFERRING PHYSICIAN: Jluis Wheatley M.D. PROCEDURE: Upper endoscopy. ANESTHESIA: Per anesthesiologist and anesthesia sheets. INSTRUMENT: Olympus adult flexible upper endoscope. INDICATION: Persistent nausea and vomiting. The procedure, risks, benefits, and possible consequences, including hemorrhage, aspiration, perforation and infection, and alternative treatments, were explained to the patient/legal guardian by Dr. Jeb Baxter and the patient/legal guardian understood and accepted these risks. DESCRIPTION OF PROCEDURE: After informed consent was obtained and the patient was adequately sedated, Olympus upper endoscope was advanced from the mouth into the second portion of the duodenum and retroflexion was performed in the stomach. The patient had evidence of minimum esophagitis right at the GE junction. There were a little bit of white patches in that area and inflammation suggestive of minimum esophagitis right at the GE junction. In the stomach, there was diffuse gastritis. There was a healing ulcer in the peripyloric region, mildly swollen, but not bleeding at this time. No evidence of any active bleeding from this ulcer at this time. No visible vessel. No adherent clot. Then, the scope was advanced to the duodenum where the patient has 3 or 4 at least flat-looking ulcerations, looks like radiation-induced or may be ischemic-induced ulceration in the duodenum. Again, these were also not actively bleeding at this time. I decided not to do any biopsy at this time. We gradually removed the scope and the procedure was terminated. SUMMARY OF FINDINGS: 1. Distal esophagitis. 2. Gastritis. 3. Gastric ulcer. 4. Multiple duodenal ulcers, possibly from either radiation or ischemia. 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 Plan for the patient to be transferred back to the floor. Consider placing NG tube if the patient has persistent vomiting. Start clear-liquid diet and advance as tolerated. I want to thank, Dr. Jluis Wheatley, for this kind referral. Jeb Baxter M.D. DR: Anibal JOB#: [id number] CC: Jluis Wheatley M.D.; Fax#: [phone]
[2018-02-10 21:27] VITALS: BP 141/85
--- NOTE | 2018-02-10 21:27 | 48 Hour Post Anesthesia Eval ---
Post Anesthesia Evaluation Procedure: egd Date of Evaluation: February 09, 2018 Time of Evaluation: 14:12 Blood Pressure Systolic: 141 0: 85 Pulse Rate: 93 Respiratory Rate: 18 Temperature (Fahrenheit): 97.4 O2 Sat by Pulse Oximetry: 97 Airway: patent Nausea: No Vomiting: No Pain Intensity: 0 Hydration Status: adequate Cardiopulmonary Status: stable Mental Status/LOC: patient returned to baseline Post-Anesthesia Complications: none Follow-up care needed: N/A Gisella Ramey MD February 10, 2018 21:27
--- NOTE | 2018-02-11 13:48 | Discharge Summary ---
Discharge Summary Discharge Summary Discharge Summary DATE OF ADMISSION: 02/08/2018 DATE OF DISCHARGE: 02/10/2018 CONSULTANTS: Dr. Jeb Solis BRIEF HOSPITAL COURSE: Patient is an 87-year-old [place] gentleman, with history of pancreatic cancer, being followed by Dr. Murrell and Dr. Baxter. He presented to Dr. Baxter's office complaining of nausea, vomiting, unable to hold any fluids or food and had dysphagia with abdominal pain. He has medical history significant for hyperlipidemia, arrhythmia, hypertension, BPH, anemia, colonic polyps, asthma, history of hip replacement, history of sepsis in the past, history of intrathecal pump. He presented to ED, blood work was stable. 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 There was mild ascites. No evidence of bowel obstruction. There was inguinal hernia. He was followed by GI. He was placed on nothing by mouth and was given IV hydration. He was given symptomatic treatment with Zofran. He was placed on proton pump inhibitors. On 02/09/2018, he underwent EGD. Findings showed distal esophagitis, gastritis, gastric ulcer, multiple duodenal ulcers, possibly from either radiation or ischemia. He underwent surgical evaluation for right inguinal hernia. On evaluation and after mild manipulation, hernia was able to be reduced but recurs right away. There was no current incarceration or strangulation. No acute surgical intervention necessary, may benefit from elective repair. He had ascites and underwent ultrasound-guided paracenteses. Total of 120 mL ascitic fluid removed. Full treatment was not carried out as patient left AGAINST MEDICAL ADVICE. 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 I have been assigned to dictate discharge summary on this account, and I was not involved in the patient's management. Debbie Shafer NP February 11, 2018 13:48
== END 2018-02-10 01:50 | disposition left against medical advice (07) | DRG 375 ==
LOC: EDBD 12:57 → EMR 13:15 → 4E 13:16 → EDBEDREQ 13:38
PROC: 0DJ08ZZ Inspection of Upper Intestinal Tract, Via Natural or Artificial Opening Endoscopic (ICD-10-PCS; principal; 2018-02-09 13:41)
PROC: 0W9G3ZX Drainage of Peritoneal Cavity, Percutaneous Approach, Diagnostic (ICD-10-PCS; principal; 2018-02-09 13:41)
DX: C78.6 Secondary malignant neoplasm of retroperitoneum and peritoneum (principal); C25.9 Malignant neoplasm of pancreas, unspecified; R18.8 Other ascites; K40.90 Unilateral inguinal hernia, without obstruction or gangrene, not specified as recurrent; E78.5 Hyperlipidemia, unspecified; I10 Essential (primary) hypertension; N40.0 Benign prostatic hyperplasia without lower urinary tract symptoms; Z96.649 Presence of unspecified artificial hip joint; R13.10 Dysphagia, unspecified; K29.70 Gastritis, unspecified, without bleeding; K26.9 Duodenal ulcer, unspecified as acute or chronic, without hemorrhage or perforation; K21.9 Gastro-esophageal reflux disease without esophagitis; Z92.3 Personal history of irradiation; R11.2 Nausea with vomiting, unspecified; R63.4 Abnormal weight loss; K20.8 Other esophagitis
CPT/HCPCS: 36415; 71045; 74176; 76942; 80053; 80061; 81003; 82550; 82553; 83690; 84443; 84484; 85025; 85610; 85730; 88104; 93005; 94003; 94150; 99285; J2405; J2765